=== PATIENT | male | born 1980 | race Hispanic/Latino ===

== ENCOUNTER 2018-01-08 00:02 | Inpatient (IN) | payer SELFPAY ==
[2018-01-08 01:38] LABS: CK (CPK) 62 U/L (30-200); CRP (Inflammatory) Less than 0.50 mg/dL (= or < 0.5); Magnesium 2.2 mg/dL (1.6-2.6)
[2018-01-08] MEDS ORDERED: Ondansetron ODT 4 MG TAB SL PRN (02:21)
[2018-01-08] MEDS ORDERED: Acetaminophen 325 MG TAB PO PRN (02:21)
[2018-01-08] MEDS ORDERED: Sodium Chloride 0.9% 1,000 ML IV SCH ×2 (02:21→02:45)
[2018-01-08] MEDS ORDERED: Ondansetron HCl/PF 4 MG/2 ML Vial IVP PRN (02:21)
[2018-01-08] MEDS ORDERED: Lorazepam 2 MG/ML VIAL SLOW IVP PRN (02:29)
[2018-01-08] MEDS ORDERED: Labetalol HCl 100 MG/20 ML VIAL SLOW IVP PRN (02:42)
[2018-01-08] MEDS ORDERED: hydrALAZINE 20 MG/ML VIAL SLOW IVP PRN (02:42)
[2018-01-08] MEDS ORDERED: Morphine 4 MG/ML VIAL SLOW IVP PRN (02:57)
[2018-01-08] MEDS ORDERED: hydrOXYzine 25 MG TAB PO PRN (03:37)
[2018-01-08 04:19] VITALS: BMI 20.8
--- NOTE | 2018-01-08 04:30 | HP ---
PRIMARY CARE PHYSICIAN: [facility]. PRESENTING COMPLAINT: Weakness. HISTORY OF PRESENT ILLNESS: Mr. Chaparro Jacob is a 37-year-old male with a past medical histor y of protein C deficiency, seizure disorder, vertigo, Crohn disease, CKD, nephrolithiasis, GERD, neur opathy in bilateral lower extremities, and dysphagia, who presents to the emergency room with a 4-day history of right extremity weakness. He said he has residual right hemiparesis and ambulates with t he aid of a cane, but yesterday he became worse and he had some blurry vision in his right eye associ ated with right-sided weakness and felt a pressure around his head. Yesterday, he was unable to get out of bed due to his weakness and continued to have blurry vision in right eye. There is no seizure activity noticed. There is no history of fever or chills. There is no history of loss of conscious ness. He reports he has had some right side of his body paralyzed for about 4 months after bouts of seizures which subsequently resolved. He reports being compliant with his medication and has been ta king Kaushik regularly. He also states he has not seen a neurologist lately due to insurance issues. He used to see Dr. Harris as reported above. No fevers, chills, chest pain, or shortness of breath . At the [facility], he complained of blurry vision. He had a chest x-ray which was nega tive. He also had a CT brain without contrast which was also negative. He was given 1 liter of IV f luid, full-strength aspirin and then sent to the emergency room at [facility]. PAST MEDICAL HISTORY: As stated in the HPI. PAST SURGICAL HISTORY: Lipoma extraction in the arm. FAMILY HISTORY: Reviewed, not contributory. PAST SURGICAL HISTORY: Esophageal dilatation. ALLERGIES: CIPROFLOXACIN, CODEINE, NORCO, REGLAN, PHENERGAN, ORANGES, and CHOCOLATES. HOME MEDICATIONS: Amitriptyline 100 mg at bedtime, folic acid 0.4 mg daily, gabapentin 300 mg t.i.d. , hydroxyzine 25 mg p.o. p.r.n., Keppra 500 mg b.i.d., pantoprazole 400 mg daily, sucralfate 1 gram b .i.d., sulfasalazine 1000 mg t.i.d., zinc 50 mg daily, dicyclomine 10 mg t.i.d. SOCIAL HISTORY: Does not drink alcohol, smoke cigarettes, or use illicit drugs. REVIEW OF SYSTEMS: A 12-point review of system conducted and negative except as stated in the HPI. PHYSICAL EXAMINATION: VITAL SIGNS: Temperature 99.1 degree Fahrenheit, pulse rate 81, respiratory rate 12, oxygen saturati on 98% on room air, blood pressure 131/69. GENERAL: Not in acute distress, lying comfortably in bed. HEENT: PERRLA, EOMI, not pale, anicteric. Moist mucous membranes. Normocephalic, atraumatic. NECK: Supple, full range of movement. No JVD. RESPIRATORY: Vesicular breath sounds bilaterally. No wheezes, rales, or rhonchi. CARDIOVASCULAR: S1, S2 only. No murmurs, rubs, or gallops. Regular rate and rhythm. ABDOMEN: Soft, nontender, nondistended. Bowel sounds normoactive. No hepatosplenomegaly. NEUROLOGIC: Alert and well oriented to time, place, and person. Strength 3/5 in the right upper and lower extremities, 5/5 in left upper and lower extremities. Other cranial nerves intact. SKIN: Warm, dry, well-perfused. No rashes or lesions. MUSCULOSKELETAL: No edema. LABORATORY AND DIAGNOSTIC DATA: CBC was largely unremarkable apart from a borderline low platelet co unt of 136,000. CMP also unremarkable. CT brain without contrast, no acute pathology. ASSESSMENT AND PLAN: 1. Right hemiparesis. Concern for new cerebrovascular accident in this patient with a history of pr otein C deficiency and seizure disorder. He reports no previous strokes in the past, but has had yair e paresis in his right upper and lower extremities after bouts of seizures for which he uses a cane t o ambulate and takes Keppra for. We will admit to Neurology make n.p.o. as he failed his bedside maria c bennett examination. We will also get neurology consult. Monitor on telemetry, obtain PT/OT/speech deloris guage pathology evaluation. An MRI brain will also be ordered. Monitor vital signs closely. 2. Seizure disorder. The patient's home medications will be restarted as soon as [facility] evaluate the p atient. For now we will place him on IV lorazepam p.r.n. for seizures. 3. History of chronic kidney disease, creatinine within normal limits. We will monitor. 4. Dysphagia. Patient has a history of dysphagia and has had esophageal dilatation twice in the pas t. He currently failed a bedside swallow test, so unclear if this is from his chronic dysphagia or d ue to possible new cerebrovascular accident. We will obtain his MRI of brain and gets speech patholo gy evaluation. 5. Protein C deficiency: Resume home medications. 6. History of vertigo.: We will resume home medications once confirmed. CODE STATUS: FULL CODE.
[2018-01-08 04:46] LABS: #Eosinphils 0.1 thou/uL (0.0-0.7); #Lymphocytes 1.1 thou/uL (1.20-3.40); #Monocytes 0.4 thou/uL (0.11-0.59); %Basophils 0.1 % (0.0-1.0); %Eosinophils 2.5 % (0.0-10.0); %Lymphocytes 30.3 % (21.0-51.0); %Neutrophils 57.1 % (42.0-75.0); Hemoglobin 12.2 g/dL (14.0-18.0); Mean Corpuscular HGB CONC 34.5 g/dL (32.0-36.0); Mean Corpuscular Hemoglobin 33.5 pg (27.0-31.0); Mean Corpuscular Volume 97.1 fl (80.0-94.0); Mean Platelet Volume 7.6 fL (7.4-10.4); Platelet Count 129 thou/uL (130-400); Red Blood Cell (RBC) Count 3.64 mill/uL (4.70-6.10); White Blood Cell (WBC) Count 3.5 thou/uL (4.8-10.8)
[2018-01-08 04:49] LABS: Amphetamine Not Detected (NotDetected); Benzodiazepine Screen Not Detected (NotDetected); Cocaine Metabolite Screen Not Detected (NotDetected); Medtox Reader # READER 4; Methamphetamine Not Detected (NotDetected); Opiate Screen Not Detected (NotDetected); Phencyclidine (PCP) Not Detected (NotDetected); THC/Cannabinoid Screen Not Detected (NotDetected)
[2018-01-08 04:50] LABS: Barbiturates Screen Not Detected (NotDetected); Medtox Control Line Valid? VALID (VALID); Methadone Not Detected (NotDetected); Oxycodone Screen Not Detected (NotDetected); Tricyclic Screen Detected (NotDetected)
[2018-01-08 04:57] LABS: Anion Gap 12 mmol/L (10-20); BUN (Urea Nitrogen) 15 mg/dL (8.9-20.6); Calc. Creatinine Clearance 89 mL/min (70-130); Calcium 9.1 mg/dL (7.8-10.44); Carbon Dioxide 24 mmol/L (22-29); Cardiac Risk 3.3 (Less than 4.5); Chloride 108 mmol/L (98-107); Cholesterol 166 mg/dl (< 200 Desired); Estimated GFR-MDRD 81; Glucose 105 mg/dL (70-105); HDL Cholesterol 50 mg/dL (>60 Neg Risk); LDL Cholesterol, Calculated 100 mg/dL; Potassium 3.7 mmol/L (3.5-5.1); Sodium 140 mmol/L (136-145); Triglycerides 81 mg/dL (Less than 150)
[2018-01-08] MEDS: Folic Acid 1 MG TAB PO SCH ×2 (08:38→09:01)
[2018-01-08] MEDS: Sucralfate 1 GM TAB PO SCH ×2 (08:38→18:26)
[2018-01-08] MEDS: levETIRAcetam 500 MG TAB PO SCH ×3 (08:39→09:18)
[2018-01-08] MEDS: Gabapentin 300 MG CAP PO SCH ×4 (08:39→21:58)
[2018-01-08] MEDS: sulfaSALAzine 500 MG TAB PO SCH ×3 (09:01→21:58)
[2018-01-08] MEDS ORDERED: levETIRAcetam 500 mg/5 ml Oral Solution PO SCH (10:30)
[2018-01-08] MEDS: Heparin 5,000 UNITS/ML VIAL SC SCH ×2 (11:54→21:59)
[2018-01-08] MEDS: Morphine 5 MG/ML SYRINGE SLOW IVP PRN ×2 (12:06→22:07)
--- NOTE | 2018-01-08 13:53 | MRI ---
MRI BRAIN WITHOUT CONTRAST: Date: 01/09/08 HISTORY: Altered mental status, seizure disorder. FINDINGS: Correlation is made with the previous day's CT scan. No restricted diffusion is seen. No evidence of infarct, hemorrhage, midline shift, or abnormal extra -axial fluid collections are seen. The ventricular size is normal and the basilar cisterns are patent . No signal abnormalities are noted on the highly sensitive FLAIR images. The visualized paranasal si nuses and mastoid air cells are well aerated. No tonsillar herniation is seen. IMPRESSION: No evidence of acute intracranial process. POS: C
[2018-01-08] MEDS ORDERED: levETIRAcetam 100 mg/ml Oral Solution PO SCH (21:00)
[2018-01-08] MEDS: Amitriptyline HCl 100 MG TAB PO SCH (21:58)
[2018-01-08] MEDS: Atorvastatin Calcium 40 MG TAB PO SCH (21:58)
[2018-01-08] MEDS: levETIRAcetam 500 mg/5 ml Oral Solution PO SCH (21:59)
[2018-01-09 06:10] LABS: #Eosinphils 0.1 thou/uL (0.0-0.7); #Lymphocytes 1.1 thou/uL (1.20-3.40); #Monocytes 0.3 thou/uL (0.11-0.59); #Neutrophils 1.4 thou/uL (1.40-6.50); %Basophils 1.3 % (0.0-1.0); %Eosinophils 4.4 % (0.0-10.0); %Lymphocytes 36.2 % (21.0-51.0); %Monocytes 11.2 % (0.0-10.0); %Neutrophils 46.9 % (42.0-75.0); Hemoglobin 13.3 g/dL (14.0-18.0); Mean Corpuscular HGB CONC 34.2 g/dL (32.0-36.0); Mean Corpuscular Volume 96.4 fl (80.0-94.0); Mean Platelet Volume 7.2 fL (7.4-10.4); Platelet Count 126 thou/uL (130-400); Red Blood Cell (RBC) Count 4.04 mill/uL (4.70-6.10)
[2018-01-09 06:24] LABS: Anion Gap 12 mmol/L (10-20); BUN (Urea Nitrogen) 15 mg/dL (8.9-20.6); Calc. Creatinine Clearance 90 mL/min (70-130); Calcium 9.9 mg/dL (7.8-10.44); Carbon Dioxide 28 mmol/L (22-29); Chloride 102 mmol/L (98-107); Estimated GFR-MDRD 82; Glucose 83 mg/dL (70-105); Potassium 3.9 mmol/L (3.5-5.1); Sodium 138 mmol/L (136-145)
--- NOTE | 2018-01-09 08:54 | CON ---
DATE OF CONSULTATION: 01/08/2018 REFERRING PROVIDER: Dr. Fer Hunter. REASON FOR CONSULTATION: Right-sided weakness. HISTORY OF PRESENT ILLNESS: Mr. Jacob is a 37-year-old male who has been consulted for ev aluation of right-sided weakness. He reports that over the past few weeks, he has been having increa sing weakness in his right side that has gradually gotten worse on yesterday. He noticed sudden onse t of unable to walk and unable to perform any activities with his hand. He was not able to move his right arm . He also noticed weakness on the right side of his face. He also noted blurry visio n in right eye. He was also complaining of numbness and tingling sensation as well as pain on the ri ght side of the face. He also complained of having headache. He states that he has history of seizu re disorder and most of his seizures are nocturnal. He is currently on Keppra 500 mg twice a day and supposed to see Dr. Craig Harris, however, due to financial reasons. He has not been able to see siddhartha orr back in the clinic. He notes that he has not had any seizure type episode, although he is not sure as most of his seizures tend to happen at night where he is by himself, he continues to complain of pain on the right side of the head. PAST MEDICAL HISTORY: Significant for protein C deficiency, seizure disorder, vertigo, Crohn's disea se, chronic kidney disease, nephrolithiasis, GERD, neuropathy, and dysphagia. PAST SURGICAL HISTORY: Significant for lipoma extraction in the arm. FAMILY HISTORY: Noncontributory. SOCIAL HISTORY: He denies smoking, alcohol use, or illicit drug use. He is currently disabled and l syd with his parents. CURRENT MEDICATIONS: Include amitriptyline 100 mg at bedtime, folic acid 0.4 mg daily, Gabapentin 30 0 mg t.i.d., hydroxyzine 25 mg p.r.n., Keppra 1500 mg b.i.d., pantoprazole 40 mg daily, sucralfate 1 gram b.i.d., sulfasalazine 1000 mg t.i.d., zinc 50 mg daily, dicyclomine 10 mg t.i.d. REVIEW OF SYSTEMS: As mentioned, which was negative. PHYSICAL EXAMINATION: VITAL SIGNS: Blood pressure of 110/65, pulse of 81, temperature of 97.8, respirations of 16, O2 sats of 97% room air. GENERAL: Well-developed, well-nourished male with no apparent distress. RESPIRATORY: Clear to auscultation bilaterally. CARDIOVASCULAR: Regular rate and rhythm. NEUROLOGIC: Mental status: The patient is awake, alert, oriented x3. Speech and language: Fluent speech. Cranial nerves: Pupils are 3 mm and reactive. Visual tafoya are intact. External muscles are intact. No nystagmus noted. Face is symmetric. Tongue and uvula midline. Motor exam showed no rmal tone and bulk with a 5/5 strength in the left upper and left lower extremity. He has giveway we akness on the right upper and right lower extremity. His tone is normal in the right upper and right lower extremity. Sensory: Sensation is intact and symmetric. Deep tendon reflexes 2+ reflexes in both upper extremities. Gait and Romberg coordination could not be tested. LABORATORY DATA: Reviewed, which included CBC, CMP, urine drug screen, which is significant for WBC of 3.5, hemoglobin 12.2, hematocrit 35.4, platelet count of 129, otherwise unremarkable. IMAGING STUDIES: MRI brain without contrast was reviewed, which showed no acute intracranial abnorma lity. IMPRESSION: 1. Right-sided weakness. 2. Headache. 3. Facial paresthesia. 4. Vision changes. PLAN: Mr. Jcaob is a pleasant 87-year-old male who presented with the gradual with sudden changes in the right-sided weakness along with facial paresthesia and vision changes. He had an MRI brain done, which showed no acute intracranial abnormality. PHYSICAL EXAMINATION: On exam, he has a giveway weakness in the right upper and right lower extremit y with a normal tone, which suggests this may be a conversion disorder. This could also be secondary to atypical migraine or post-seizure, although the exam is suggests more of weakness. At this time, I will recommend continue physical therapy. Continue supportive care. No further neurologica l workup needed from my standpoint. Thank you for consultation.
[2018-01-09] MEDS: Heparin 5,000 UNITS/ML VIAL SC SCH ×2 (08:59→21:05)
[2018-01-09] MEDS: Gabapentin 300 MG CAP PO SCH ×3 (09:00→21:04)
[2018-01-09] MEDS: sulfaSALAzine 500 MG TAB PO SCH ×3 (09:00→21:04)
[2018-01-09] MEDS: Sucralfate 1 GM TAB PO SCH ×2 (09:00→16:10)
[2018-01-09] MEDS: Folic Acid 1 MG TAB PO SCH (09:00)
[2018-01-09] MEDS: levETIRAcetam 500 mg/5 ml Oral Solution PO SCH ×2 (09:01→21:05)
--- NOTE | 2018-01-09 12:05 | CON ---
DATE OF CONSULTATION: 01/08/2018 REFERRING PHYSICIAN: Dr. Addi Swanson, [facility]. REASON FOR CONSULTATION: Dysphagia. HISTORY OF PRESENT ILLNESS: Mr. Chaparro Jacob is a 37-year-old male, who is known to me from before. The patient was hospitalized over the weekend with weakness of the right upper and lower extremitie s. He also had some blurring of vision. The patient had a CAT scan of the head and MRI of the head, which came back negative for any acute intracranial pathologies. The etiology of the symptom is unc lear at the present time. There is some questionable history of post migraine neurological deficit, . The patient has a very complicated medical history. 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 He was found to have factor C deficiency and was placed on initially Lovenox and subsequently changed to warfarin. The patient had abdominal CAT scan at that time, revealed diffuse colitis. The CAT scan showed diffuse thickening of the colon. Endoscopy showed completely normal mu cosa. He was hospitalized again with abdominal cramping, diarrhea, and hematochezia. A repeat colon oscopy done few months down the road showed nonspecific findings in the rectum and lower sigmoid area . The findings consisted of mucosal edema, erythema, and some tiny ulcers. The patient was hospital ized subsequently in 2014 and also in 2016 at [facility] and also in [place]. He was told to have Crohn's disease in [place] and was placed on sulfasalazine. He takes peck lfasalazine 500 mg 2 tablets p.o. every 8 hours. The patient had a colonoscopy and also capsule endo scopy as per the patient in 2014 and 2016. He also was told to have esophageal stricture and underwe nt dilatation at [facility] in 2016. The patient may have difficulty swallow ing over the last several weeks. He complains of food hang in the esophagus, makes him cough and cho ke. He has no painful swallowing. There is history of chronic acid reflux. Other relevant history includes, 1. Protein C deficiency. 2. Seizure disorder. 3. Vertigo. 4. Crohn's disease. 5. Chronic kidney disease. 6. Nephrolithiasis. 7. Chronic acid reflux. 8. Peripheral neuropathy. No relevant history. ALLERGIES: CIPROFLOXACIN, CODEINE, NORCO, REGLAN, PHENERGAN, ORANGES and CHOCOLATES. SOCIAL HISTORY: The patient denies any smoking or alcohol abuse. No history of drug use. MEDICAL ILLNESSES: As listed. PAST SURGICAL HISTORY: 1. History of lipoma extraction in the right arm. 2. Colonoscopy, multiple 3. Esophageal dilatation. MEDICATIONS: Include: 1. Amitriptyline 100 mg at bedtime. 2. Folic acid 0.4 mg daily. 3. Gabapentin 300 mg 3 times a day. 4. Hydroxyzine 25 mg p.o. p.r.n. 5. Keppra 500 mg p.o. twice a day. 6. Pantoprazole 40 mg p.o. once a day. 7. Sucralfate 1 gram p.o. twice a day. 8. Sulfasalazine 1000 mg 3 times a day. 9. Dicyclomine 10 mg 3 times a day. 10. Zinc supplement. REVIEW OF SYSTEMS: Remarkable for dysphagia over the last several weeks with history of known diarrh ea, hematochezia, abdominal pain, and also with Crohn's disease, weakness and ataxia of most recent o nset. PHYSICAL EXAMINATION: GENERAL: The patient appears comfortable. VITAL SIGNS: Afebrile. His pulse is 80, blood pressure is 130/70. HEENT: Conjunctivae clear. NECK: Supple. No adenitis or thyromegaly noted. CARDIOVASCULAR SYSTEM: First and second heart sounds normal. LUNGS: Clear to auscultate. ABDOMEN: Soft to palpate. No organomegaly. No tenderness. No masses. EXTREMITIES: Reveal no edema. CENTRAL NERVOUS SYSTEM: Weakness on the right upper and lower extremity. IMAGING: CAT scan of the head and also MRI, which came back negative. LABORATORY DATA: CBC unremarkable. Platelet count is 136,000. BMP is normal. CLINICAL IMPRESSION: A 37-year-old male with dysphagia, which has been going on for several months. He has history of an esophageal stricture and underwent dilatation 2 years ago in [facility]. He has a very complicated medical history. I am really not sure what he eats dysphagia. The neuro workup is pending at the present time. I will await the Neurology i nput and we will decide where to go from there. I really want EGD at least solid food dys phagia. I will make further recommendations after the proper Neurology evaluation.
--- NOTE | 2018-01-09 12:45 | PDOC.PN ---
- Subjective Encounter Start Date: 01/09/18 Encounter Start Time: 07:20 Pt seen for followup re: hemiparesis. Reports ongoing right-sided weakness. Denies chest pain, shortness of breath, fevers or chills. - Objective Resuscitation Status: Resuscitation Status FULL:Full Resuscitation MAR Reviewed: Yes Vital Signs & Weight: Vital Signs (12 hours) Temp Pulse Resp BP Pulse Ox 01/09/18 11:00 98.1 F 89 14 104/60 95 01/09/18 08:00 97.8 F 79 14 01/09/18 07:00 97.8 F 79 14 100/59 L 96 01/09/18 03:31 98.0 F 80 16 96/52 L 96 Weight Admit Weight 141 lb 6.4 oz Weight 141 lb 6.4 oz I&O: 01/08/18 01/09/18 01/10/18 06:59 06:59 06:59 Intake Total 300 270 Output Total 600 Balance -300 270 Result Diagrams: 01/09/18 05:50 01/09/18 05:50 Additional Labs: Accuchecks 01/09/18 01/09/18 01/08/18 11:08 05:49 20:50 POC Glucose 110 89 76 01/08/18 16:59 POC Glucose 85 EKG Reviewed by me: Yes (Tele: NSR) Phys Exam - Physical Examination Constitutional: NAD HEENT: PERRLA, moist MMs, sclera anicteric, oral pharynx no lesions Neck: no nodes, no JVD, supple, full ROM Respiratory: no wheezing, no rales, no rhonchi, clear to auscultation bilateral Cardiovascular: RRR, no rub Gastrointestinal: soft, non-tender, no distention, positive bowel sounds Musculoskeletal: pulses present Variable power RUE and RLE, 5/5 LUE and LLE Psychiatric: normal affect Skin: no rash Dx/Plan (1) Hemiparesis Code(s): G81.90 - HEMIPLEGIA, UNSPECIFIED AFFECTING UNSPECIFIED SIDE Status: Acute Comment: conversion disorder vs atypical migraine; appreciate neurology input. (2) Dysphagia Code(s): R13.10 - DYSPHAGIA, UNSPECIFIED Status: Chronic Comment: for scope tomorrow, discussed with GI service (3) Nephrolithiasis Status: Chronic Comment: stable (4) GERD (gastroesophageal reflux disease) Code(s): K21.9 - GASTRO-ESOPHAGEAL REFLUX DISEASE WITHOUT ESOPHAGITIS Status: Chronic Comment: stable, continue PPI (5) Protein C deficiency Code(s): D68.59 - OTHER PRIMARY THROMBOPHILIA Status: Chronic Comment: stable - Plan * . Review of Systems - Review of Systems Constitutional: weakness. negative: fever, chills, sweats, malaise Respiratory: negative: Cough, Dry, Shortness of Breath, Hemoptysis, SOB with Excertion, Pleuritic Pain, Sputum, Wheezing Cardiovascular: negative: chest pain, palpitations, orthopnea, paroxysmal nocturnal dyspnea, edema, light headedness Gastrointestinal: Other (difficulty swallowing). negative: Nausea, Vomiting, Abdominal Pain, Diarrhea, Constipation, Melena, Hematochezia Genitourinary: negative: Dysuria, Frequency, Incontinence, Hematuria, Retention Skin: negative: Rash, Lesions, Manjeet, Bruising - Medications/Allergies Allergies/Adverse Reactions: Allergies Allergy/AdvReac Type Severity Reaction Status Date / Time orange juice [Murdo Juice] Allergy Intermediate Hives Verified 12/17/13 00:01 promethazine HCl Allergy Mild Anxiety Verified 12/17/13 00:01 [From Phenergan] acetaminophen [From [place]] Allergy Verified 01/08/18 03:01 chocolate flavor Allergy Verified 01/08/18 03:01 ciprofloxacin [From Cipro] Allergy Verified 01/08/18 03:01 hydrocodone Allergy Verified 01/06/14 15:57 metoclopramide [From Reglan] Allergy Verified 01/08/18 03:01 codeine AdvReac Intermediate Nausea Verified 12/20/13 18:50 Medications: Current Medications Amitriptyline HCl (Elavil) 100 mg PO HS [facility] Last Admin: 01/08/18 21:58 Dose: 100 mg Atorvastatin Calcium (Lipitor) 40 mg PO HS [facility] Last Admin: 01/08/18 21:58 Dose: 40 mg Folic Acid (Folvite) 0.5 mg PO DAILY [facility] Last Admin: 01/09/18 09:00 Dose: 0.5 mg Gabapentin (Neurontin) 300 mg PO TID [facility] Last Admin: 01/09/18 09:00 Dose: 300 mg Heparin Sodium (Porcine) (Heparin) 5,000 units SC Q12HR [facility] Last Admin: 01/09/18 08:59 Dose: 5,000 units Hydralazine HCl (Apresoline) 10 mg SLOW IVP Q4H PRN PRN Reason: BP > 220/110 Hydroxyzine HCl (Atarax) 25 mg PO PRN PRN PRN Reason: Dizziness Labetalol HCl (Normodyne) 20 mg SLOW IVP Q1H PRN PRN Reason: BP > 220/110 Levetiracetam (Keppra Oral Solution) 500 mg PO BID [facility] Last Admin: 01/09/18 09:01 Dose: 500 mg Lorazepam (Ativan) 1 mg SLOW IVP Q4H PRN PRN Reason: Anxiety/Agitation Morphine Sulfate (Morphine) 2 mg SLOW IVP Q2H PRN PRN Reason: Pain Last Admin: 01/08/18 22:07 Dose: 2 mg Pantoprazole Sodium (Protonix) 40 mg PO DAILY [facility] Last Admin: 01/09/18 09:01 Dose: 40 mg Sodium Chloride (Flush - Normal Saline) 10 ml IVF Q12HR [facility] Last Admin: 01/09/18 09:01 Dose: 10 ml Sodium Chloride (Flush - Normal Saline) 10 ml IVF PRN PRN PRN Reason: Saline Flush Sucralfate (Carafate) 1 gm PO BID-AC [facility] Last Admin: 01/09/18 09:00 Dose: 1 gm Sulfasalazine (Azulfidine) 1,000 mg PO TID [facility] Last Admin: 01/09/18 09:00 Dose: 1,000 mg
[2018-01-09] MEDS ORDERED: Dicyclomine 10 MG CAP PO PRN (12:54)
[2018-01-09] MEDS ORDERED: Morphine IR 10 MG/5 ML UDCUP PO SCH (13:15)
[2018-01-09] MEDS ORDERED: Morphine 4 MG/ML VIAL IV PRN (13:32)
[2018-01-09] MEDS ORDERED: Morphine 10 MG/0.5 ML ORAL SYRINGE SL SCH (13:45)
[2018-01-09] MEDS: Amitriptyline HCl 100 MG TAB PO SCH (21:04)
[2018-01-09] MEDS: Atorvastatin Calcium 40 MG TAB PO SCH (21:04)
[2018-01-10 05:40] LABS: #Eosinphils 0.1 thou/uL (0.0-0.7); #Lymphocytes 1.2 thou/uL (1.20-3.40); #Monocytes 0.4 thou/uL (0.11-0.59); #Neutrophils 1.8 thou/uL (1.40-6.50); %Basophils 0.8 % (0.0-1.0); %Eosinophils 3.1 % (0.0-10.0); %Lymphocytes 34.3 % (21.0-51.0); %Monocytes 10.5 % (0.0-10.0); %Neutrophils 51.3 % (42.0-75.0); Hemoglobin 14.4 g/dL (14.0-18.0); Mean Corpuscular HGB CONC 34.6 g/dL (32.0-36.0); Mean Corpuscular Hemoglobin 33.2 pg (27.0-31.0); Mean Platelet Volume 6.9 fL (7.4-10.4); Platelet Count 142 thou/uL (130-400); Red Blood Cell (RBC) Count 4.32 mill/uL (4.70-6.10); White Blood Cell (WBC) Count 3.4 thou/uL (4.8-10.8)
[2018-01-10 06:07] LABS: Anion Gap 16 mmol/L (10-20); BUN (Urea Nitrogen) 18 mg/dL (8.9-20.6); Calc. Creatinine Clearance 74 mL/min (70-130); Carbon Dioxide 25 mmol/L (22-29); Chloride 101 mmol/L (98-107); Estimated GFR-MDRD 65; Glucose 86 mg/dL (70-105); Potassium 3.8 mmol/L (3.5-5.1); Sodium 138 mmol/L (136-145)
[2018-01-10] MEDS: Sucralfate 1 GM TAB PO SCH ×2 (08:18→15:40)
--- NOTE | 2018-01-10 08:35 | PRG ---
DATE OF SERVICE: 01/09/2018 HOSPITAL VISIT NOTE SUBJECTIVE: This is a 37-year-old male hospitalized with weakness on the right upper and lower extre mity. The patient has significant dysphagia. The dysphagia occurs mostly in solid food. The patien t has past history of esophageal dilatation. PHYSICAL EXAMINATION: GENERAL: Appears comfortable. VITAL SIGNS: Stable. CARDIOVASCULAR SYSTEM AND LUNGS: Within normal limits. ABDOMEN: Soft to palpate. No organomegaly. No tenderness. No masses. CLINICAL IMPRESSION: Dysphagia, etiology is unclear. PLAN: EGD tomorrow.
[2018-01-10] MEDS ORDERED: Non-Formulary Item 1 EACH (Zinc [Zinc] 50 MG) PO SCH (09:00)
[2018-01-10] MEDS ORDERED: Promethazine HCl 25 MG/ML VIAL SLOW IVP PRN (09:46)
[2018-01-10] MEDS ORDERED: Promethazine HCl 25 MG/ML VIAL IM PRN (09:46)
[2018-01-10] MEDS ORDERED: Ondansetron HCl/PF 4 MG/2 ML Vial IVP PRN (09:46)
[2018-01-10] MEDS: Gabapentin 300 MG CAP PO SCH ×3 (11:42→21:16)
[2018-01-10] MEDS: Heparin 5,000 UNITS/ML VIAL SC SCH ×2 (11:42→21:16)
[2018-01-10] MEDS: sulfaSALAzine 500 MG TAB PO SCH ×3 (11:43→21:15)
[2018-01-10] MEDS: Zinc Sulfate 220 MG CAP PO SCH (11:53)
[2018-01-10] MEDS: levETIRAcetam 500 mg/5 ml Oral Solution PO SCH ×2 (11:53→21:16)
[2018-01-10] MEDS: Folic Acid 1 MG TAB PO SCH (11:53)
[2018-01-10] MEDS: Sodium Chloride 0.9% 1,000 ML IV SCH (13:05)
[2018-01-10] MEDS ORDERED: PROPOFOL 200 MG/20 ML VIAL ONE (15:59)
--- NOTE | 2018-01-10 16:40 | PDOC.PN ---
- Subjective Encounter Start Date: 01/10/18 Encounter Start Time: 16:39 Pt seen for followup re: R hemiparesis. Reports pain over right side of head, sharp, starting in forntal region and radiating to occiput. Reports blurry vision but bedside visual acuity testing normal. - Objective Resuscitation Status: Resuscitation Status FULL:Full Resuscitation MAR Reviewed: Yes Vital Signs & Weight: Vital Signs (12 hours) Temp Pulse Resp BP Pulse Ox 01/10/18 15:33 98.4 F 84 16 105/63 94 L 01/10/18 12:02 98.0 F 80 16 95/63 96 01/10/18 10:47 77 18 101/62 100 01/10/18 08:00 98.0 F 80 16 91/63 95 Weight Admit Weight 141 lb 6.4 oz Weight 141 lb 6.4 oz I&O: 01/09/18 01/10/18 01/11/18 06:59 06:59 06:59 Intake Total 300 1610 Output Total 600 750 Balance -300 860 Result Diagrams: 01/10/18 05:27 01/10/18 05:27 Additional Labs: Accuchecks 01/10/18 01/10/18 01/09/18 11:07 05:15 20:25 POC Glucose 88 89 94 01/09/18 16:47 POC Glucose 91 EKG Reviewed by me: Yes (Tele: NSR) Phys Exam - Physical Examination Constitutional: NAD HEENT: PERRLA, moist MMs, sclera anicteric, oral pharynx no lesions Neck: no nodes, no JVD, supple, full ROM Respiratory: no wheezing, no rales, no rhonchi, clear to auscultation bilateral Cardiovascular: RRR, no rub Gastrointestinal: soft, non-tender, no distention, positive bowel sounds Musculoskeletal: pulses present Power 2/5 RLE and RUE, 5/5 LLE and LUE Psychiatric: normal affect Skin: no rash Dx/Plan (1) Hemiparesis Code(s): G81.90 - HEMIPLEGIA, UNSPECIFIED AFFECTING UNSPECIFIED SIDE Status: Acute Comment: conversion disorder vs atypical migraine; discussed with neurology service, will administer Depacon for possible migraine (2) Dysphagia Code(s): R13.10 - DYSPHAGIA, UNSPECIFIED Status: Chronic Comment: Had scope today, await report. Pt reports dysphagia is improving. (3) Nephrolithiasis Status: Chronic Comment: stable (4) GERD (gastroesophageal reflux disease) Code(s): K21.9 - GASTRO-ESOPHAGEAL REFLUX DISEASE WITHOUT ESOPHAGITIS Status: Chronic Comment: continue PPI (5) Protein C deficiency Code(s): D68.59 - OTHER PRIMARY THROMBOPHILIA Status: Chronic Comment: stable - Plan * . Review of Systems - Review of Systems Constitutional: weakness. negative: fever, chills, sweats, malaise Respiratory: negative: Cough, Dry, Shortness of Breath, Hemoptysis, SOB with Excertion, Pleuritic Pain, Sputum, Wheezing Cardiovascular: negative: chest pain, palpitations, orthopnea, paroxysmal nocturnal dyspnea, edema, light headedness Musculoskeletal: Other (headache). negative: Neck Pain, Shoulder Pain, Arm Pain , Back Pain, Hand Pain, Leg Pain, Foot Pain Skin: negative: Rash, Lesions, Manjeet, Bruising Neurological: Weakness, Other (headache). negative: Numbness, Incoordination, Change in Speech, Confusion, Seizures - Medications/Allergies Allergies/Adverse Reactions: Allergies Allergy/AdvReac Type Severity Reaction Status Date / Time orange juice [[place] Juice] Allergy Intermediate Hives Verified 12/17/13 00:01 promethazine HCl Allergy Mild Anxiety Verified 12/17/13 00:01 [From Phenergan] acetaminophen [From [place]] Allergy Verified 01/08/18 03:01 chocolate flavor Allergy Verified 01/08/18 03:01 ciprofloxacin [From Cipro] Allergy Verified 01/08/18 03:01 hydrocodone Allergy Verified 01/06/14 15:57 metoclopramide [From Reglan] Allergy Verified 01/08/18 03:01 codeine AdvReac Intermediate Nausea Verified 12/20/13 18:50 Medications: Current Medications Amitriptyline HCl (Elavil) 100 mg PO HS [facility] Last Admin: 01/09/18 21:04 Dose: 100 mg Atorvastatin Calcium (Lipitor) 40 mg PO HS [facility] Last Admin: 01/09/18 21:04 Dose: 40 mg Dicyclomine HCl (Bentyl) 10 mg PO TIDPRN PRN PRN Reason: GI Cramping Folic Acid (Folvite) 0.5 mg PO DAILY [facility] Last Admin: 01/10/18 11:53 Dose: 0.5 mg Gabapentin (Neurontin) 300 mg PO TID [facility] Last Admin: 01/10/18 15:36 Dose: 300 mg Heparin Sodium (Porcine) (Heparin) 5,000 units SC Q12HR [facility] Last Admin: 01/10/18 11:42 Dose: Not Given Hydralazine HCl (Apresoline) 10 mg SLOW IVP Q4H PRN PRN Reason: BP > 220/110 Hydroxyzine HCl (Atarax) 25 mg PO PRN PRN PRN Reason: Dizziness Sodium Chloride (Normal Saline 0.9%) 1,000 mls @ 75 mls/hr IV .[id number] [facility] Last Admin: 01/10/18 13:05 Dose: 1,000 mls Valproic Acid 500 mg/ Sodium (Chloride) 105 mls @ 100 mls/hr IVPB NOW [facility] Stop: 01/10/18 18:45 Labetalol HCl (Normodyne) 20 mg SLOW IVP Q1H PRN PRN Reason: BP > 220/110 Levetiracetam (Keppra Oral Solution) 500 mg PO BID [facility] Last Admin: 01/10/18 11:53 Dose: 500 mg Lorazepam (Ativan) 1 mg SLOW IVP Q4H PRN PRN Reason: Anxiety/Agitation Morphine Sulfate (Morphine) 2 mg IV Q2H PRN PRN Reason: Pain Pantoprazole Sodium (Protonix) 40 mg PO DAILY [facility] Last Admin: 01/10/18 11:53 Dose: 40 mg Sodium Chloride (Flush - Normal Saline) 10 ml IVF Q12HR [facility] Last Admin: 01/10/18 11:53 Dose: 10 ml Sodium Chloride (Flush - Normal Saline) 10 ml IVF PRN PRN PRN Reason: Saline Flush Sucralfate (Carafate) 1 gm PO BID-AC [facility] Last Admin: 01/10/18 15:40 Dose: Not Given Sulfasalazine (Azulfidine) 1,000 mg PO TID [facility] Last Admin: 01/10/18 15:36 Dose: 1,000 mg Zinc Sulfate (Zinc Sulfate) 220 mg PO DAILY [facility] Last Admin: 01/10/18 11:53 Dose: 220 mg
[2018-01-10] MEDS ORDERED: Valproate Sodium 500 MG in Sodium Chloride 0.9% 100 ML IVPB SCH (16:45)
[2018-01-10] MEDS: Atorvastatin Calcium 40 MG TAB PO SCH (21:15)
[2018-01-10] MEDS: Amitriptyline HCl 100 MG TAB PO SCH (21:17)
--- NOTE | 2018-01-11 00:59 | OP ---
DATE OF SURGERY: 01/10/2018 OPERATIVE PROCEDURE: 1. Esophagogastroduodenoscopy. 2. Esophageal dilation with 52-Eth[place] Anthony dilator. PREOPERATIVE DIAGNOSIS: Dysphagia. POSTOPERATIVE DIAGNOSIS: Normal exam. Because of dysphagia, esophageal dilation done with 52-Eth[place] Anthony dilator. PROCEDURE NOTE: The patient was placed on his left lateral position and was given sedation by Anesth esia Department. A Pentax video gastroscope under direct vision was passed down the oropharynx, past the GE junction into the stomach and subsequently into the descending duodenum. Although, the patie nt complained of dysphagia. On endoscopy, there was no stricture seen. The vocal cords appeared hea lthy. The esophageal mucosa appeared normal throughout the esophagus. There was no intrinsic lesion seen. The GE junction, the fundus and cardia, gastric body, gastric antrum, and duodenum, no pathol ogy seen. The stomach was decompressed and the scope removed. Because of history of dysphagia, it w as decided to pass a 52-Eth[place] Anthony dilator. The dilator was advanced into the stomach without an y resistance. RECOMMENDATIONS: 1. Diet as tolerated. 2. No further recommendation made for the dysphagia.
[2018-01-11] MEDS: Sodium Chloride 0.9% 1,000 ML IV SCH ×2 (07:26→15:37)
[2018-01-11 07:55] LABS: #Eosinphils 0.1 thou/uL (0.0-0.7); #Lymphocytes 1.1 thou/uL (1.20-3.40); #Monocytes 0.3 thou/uL (0.11-0.59); #Neutrophils 1.1 thou/uL (1.40-6.50); %Basophils 1.6 % (0.0-1.0); %Lymphocytes 41.2 % (21.0-51.0); %Monocytes 10.3 % (0.0-10.0); Mean Corpuscular HGB CONC 33.8 g/dL (32.0-36.0); Mean Corpuscular Hemoglobin 33.4 pg (27.0-31.0); Mean Corpuscular Volume 98.9 fl (80.0-94.0); Mean Platelet Volume 7.7 fL (7.4-10.4); Platelet Count 134 thou/uL (130-400); RBC Distribution Width 10.9 % (11.5-14.5); Red Blood Cell (RBC) Count 3.88 mill/uL (4.70-6.10); White Blood Cell (WBC) Count 2.6 thou/uL (4.8-10.8)
[2018-01-11 08:30] LABS: Anion Gap 11 mmol/L (10-20); BUN (Urea Nitrogen) 17 mg/dL (8.9-20.6); Calc. Creatinine Clearance 83 mL/min (70-130); Calcium 9.2 mg/dL (7.8-10.44); Carbon Dioxide 25 mmol/L (22-29); Chloride 105 mmol/L (98-107); Estimated GFR-MDRD 75; Glucose 77 mg/dL (70-105); Potassium 4.3 mmol/L (3.5-5.1); Sodium 137 mmol/L (136-145)
[2018-01-11] MEDS: Folic Acid 1 MG TAB PO SCH (08:46)
[2018-01-11] MEDS: Gabapentin 300 MG CAP PO SCH ×3 (08:46→21:47)
[2018-01-11] MEDS: sulfaSALAzine 500 MG TAB PO SCH ×3 (08:46→21:48)
[2018-01-11] MEDS: levETIRAcetam 500 mg/5 ml Oral Solution PO SCH ×2 (08:46→21:46)
[2018-01-11] MEDS: Zinc Sulfate 220 MG CAP PO SCH (08:46)
[2018-01-11] MEDS: Heparin 5,000 UNITS/ML VIAL SC SCH (08:47)
[2018-01-11] MEDS: Sucralfate 1 GM TAB PO SCH ×2 (08:48→18:12)
[2018-01-11] MEDS ORDERED: Ondansetron HCl/PF 4 MG/2 ML Vial SLOW IVP PRN (11:04)
[2018-01-11] MEDS ORDERED: Ondansetron ODT 8 MG TAB PO SCH (11:30)
--- NOTE | 2018-01-11 12:01 | PDOC.PN ---
- Subjective Encounter Start Date: 01/11/18 Encounter Start Time: 08:40 Pt seen for followup re: R hemiparesis. Denies headache, fevers or chills. Reports ongoing right-sided weakness. - Objective Resuscitation Status: Resuscitation Status FULL:Full Resuscitation MAR Reviewed: Yes Vital Signs & Weight: Vital Signs (12 hours) Temp Pulse Resp BP Pulse Ox 01/11/18 11:00 97.9 F 85 16 83/50 L 95 01/11/18 08:00 97.9 F 94 16 01/11/18 07:33 97.9 F 94 16 95/62 96 Weight Admit Weight 141 lb 6.4 oz Weight 141 lb 6.4 oz I&O: 01/10/18 01/11/18 01/12/18 06:59 06:59 06:59 Intake Total 1610 1210 360 Output Total 750 3 Balance 860 1207 360 Result Diagrams: 01/11/18 05:38 01/11/18 06:30 Additional Labs: Accuchecks 01/11/18 01/11/18 01/10/18 11:04 05:39 20:42 POC Glucose 92 84 119 H 01/10/18 16:39 POC Glucose 91 EKG Reviewed by me: Yes (Tele: NSR) Phys Exam - Physical Examination Constitutional: NAD HEENT: PERRLA, moist MMs, sclera anicteric, oral pharynx no lesions Neck: no nodes, no JVD, supple, full ROM Respiratory: no wheezing, no rales, no rhonchi, clear to auscultation bilateral Cardiovascular: RRR, no rub Gastrointestinal: soft, non-tender, positive bowel sounds Musculoskeletal: pulses present Power 3+/5 RUE and RLE, 5/5 LUE and LLE Psychiatric: normal affect Dx/Plan (1) Hemiparesis Code(s): G81.90 - HEMIPLEGIA, UNSPECIFIED AFFECTING UNSPECIFIED SIDE Status: Acute Comment: conversion disorder vs atypical migraine; Pt received Depacon for possible migraine, reports no benefit. Pt requesting second neurology opinion, will consult Dr. Harris. (2) Dysphagia Code(s): R13.10 - DYSPHAGIA, UNSPECIFIED Status: Chronic Comment: s/p EGD yesterday, no etiology found. Pt reports dysphagia is improving. (3) Nephrolithiasis Status: Chronic Comment: stable (4) GERD (gastroesophageal reflux disease) Code(s): K21.9 - GASTRO-ESOPHAGEAL REFLUX DISEASE WITHOUT ESOPHAGITIS Status: Chronic Comment: on PPI (5) Protein C deficiency Code(s): D68.59 - OTHER PRIMARY THROMBOPHILIA Status: Chronic Comment: stable - Plan * . Review of Systems - Review of Systems Constitutional: weakness. negative: fever, chills, sweats, malaise Respiratory: negative: Cough, Dry, Shortness of Breath, Hemoptysis, SOB with Excertion, Pleuritic Pain, Sputum, Wheezing Cardiovascular: negative: chest pain, palpitations, orthopnea, paroxysmal nocturnal dyspnea, edema, light headedness Gastrointestinal: Nausea, Other (dysphagia). negative: Vomiting, Abdominal Pain , Diarrhea, Constipation, Melena, Hematochezia Genitourinary: negative: Dysuria, Frequency, Incontinence, Hematuria, Retention Skin: negative: Rash, Lesions, Manjeet, Bruising Neurological: Weakness - Medications/Allergies Allergies/Adverse Reactions: Allergies Allergy/AdvReac Type Severity Reaction Status Date / Time orange juice [[place] Juice] Allergy Intermediate Hives Verified 12/17/13 00:01 promethazine HCl Allergy Mild Anxiety Verified 12/17/13 00:01 [From Phenergan] acetaminophen [From [place]] Allergy Verified 01/08/18 03:01 chocolate flavor Allergy Verified 01/08/18 03:01 ciprofloxacin [From Cipro] Allergy Verified 01/08/18 03:01 hydrocodone Allergy Verified 01/06/14 15:57 metoclopramide [From Reglan] Allergy Verified 01/08/18 03:01 codeine AdvReac Intermediate Nausea Verified 12/20/13 18:50 Medications: Current Medications Amitriptyline HCl (Elavil) 100 mg PO HS [facility] Last Admin: 01/10/18 21:17 Dose: 100 mg Atorvastatin Calcium (Lipitor) 40 mg PO HS [facility] Last Admin: 01/10/18 21:15 Dose: 40 mg Dicyclomine HCl (Bentyl) 10 mg PO TIDPRN PRN PRN Reason: GI Cramping Folic Acid (Folvite) 0.5 mg PO DAILY [facility] Last Admin: 01/11/18 08:46 Dose: 0.5 mg Gabapentin (Neurontin) 300 mg PO TID [facility] Last Admin: 01/11/18 08:46 Dose: 300 mg Heparin Sodium (Porcine) (Heparin) 5,000 units SC Q12HR [facility] Last Admin: 01/11/18 08:47 Dose: 5,000 units Hydralazine HCl (Apresoline) 10 mg SLOW IVP Q4H PRN PRN Reason: BP > 220/110 Hydroxyzine HCl (Atarax) 25 mg PO PRN PRN PRN Reason: Dizziness Sodium Chloride (Normal Saline 0.9%) 1,000 mls @ 75 mls/hr IV .[id number] [facility] Last Admin: 01/11/18 07:26 Dose: 1,000 mls Labetalol HCl (Normodyne) 20 mg SLOW IVP Q1H PRN PRN Reason: BP > 220/110 Levetiracetam (Keppra Oral Solution) 500 mg PO BID [facility] Last Admin: 01/11/18 08:46 Dose: 500 mg Lorazepam (Ativan) 1 mg SLOW IVP Q4H PRN PRN Reason: Anxiety/Agitation Morphine Sulfate (Morphine) 2 mg IV Q2H PRN PRN Reason: Pain Ondansetron HCl (Zofran) 4 mg SLOW IVP Q4H PRN PRN Reason: Nausea/Vomiting Ondansetron HCl (Zofran Odt) 8 mg PO 1130 [facility] Stop: 01/11/18 15:00 Last Admin: 01/11/18 11:41 Dose: 8 mg Pantoprazole Sodium (Protonix) 40 mg PO DAILY [facility] Last Admin: 01/11/18 08:46 Dose: 40 mg Sodium Chloride (Flush - Normal Saline) 10 ml IVF Q12HR [facility] Last Admin: 01/11/18 08:48 Dose: Not Given Sodium Chloride (Flush - Normal Saline) 10 ml IVF PRN PRN PRN Reason: Saline Flush Sucralfate (Carafate) 1 gm PO BID-AC [facility] Last Admin: 01/11/18 08:48 Dose: Not Given Sulfasalazine (Azulfidine) 1,000 mg PO TID [facility] Last Admin: 01/11/18 08:46 Dose: 1,000 mg Zinc Sulfate (Zinc Sulfate) 220 mg PO DAILY [facility] Last Admin: 01/11/18 08:46 Dose: 220 mg
[2018-01-11] MEDS ORDERED: ISOVUE-370 76%-LOCM 1 ML ONE (13:55)
--- NOTE | 2018-01-11 15:44 | RAD ---
PORTABLE CHEST: History: Cough. Comparison: 01-07-18 FINDINGS: Heart size and mediastinum are within normal limits. The lungs are clear of infiltrates. No significa nt bony findings. IMPRESSION: No active intrathoracic disease. POS: TPC
[2018-01-11 16:00] LABS: Troponin I Less than 0.010 ng/mL (< 0.028)
[2018-01-11 18:26] LABS: #Eosinphils 0.1 thou/uL (0.0-0.7); #Lymphocytes 0.9 thou/uL (1.20-3.40); #Monocytes 0.2 thou/uL (0.11-0.59); #Neutrophils 1.1 thou/uL (1.40-6.50); %Eosinophils 4.3 % (0.0-10.0); %Lymphocytes 38.3 % (21.0-51.0); %Monocytes 9.1 % (0.0-10.0); %Neutrophils 47.4 % (42.0-75.0); Hemoglobin 12.1 g/dL (14.0-18.0); Mean Corpuscular HGB CONC 33.3 g/dL (32.0-36.0); Mean Corpuscular Hemoglobin 32.9 pg (27.0-31.0); Mean Corpuscular Volume 98.7 fl (80.0-94.0); Mean Platelet Volume 7.2 fL (7.4-10.4); Platelet Count 128 thou/uL (130-400); RBC Distribution Width 10.9 % (11.5-14.5); Red Blood Cell (RBC) Count 3.69 mill/uL (4.70-6.10); White Blood Cell (WBC) Count 2.4 thou/uL (4.8-10.8)
[2018-01-11 18:36] LABS: Bilirubin Negative (Negative); Blood, Urine Negative (Negative); Clarity CLEAR (Clear); Glucose, Urine (Dipstick) Negative (Negative); Leukocyte Negative (Negative); Nitrite Negative (Negative); Protein, Urine (Dipstick) Negative (Neg-Trace); Specific Gravity, Urine 1.012 (1.002-1.036)
[2018-01-11 18:45] LABS: ALT (SGPT) 17 U/L (8-55); AST (SGOT) 18 U/L (5-34); Albumin 3.9 g/dL (3.5-5.0); Alkaline Phosphatase 43 U/L (40-150); Anion Gap 11 mmol/L (10-20); BUN (Urea Nitrogen) 14 mg/dL (8.9-20.6); Bilirubin, Total 0.4 mg/dL (0.2-1.2); Calc. Creatinine Clearance 79 mL/min (70-130); Calcium 8.8 mg/dL (7.8-10.44); Carbon Dioxide 24 mmol/L (22-29); Chloride 107 mmol/L (98-107); Estimated GFR-MDRD 71; Globulin 2.1 g/dL (2.4-3.5); Glucose 88 mg/dL (70-105); Sodium 138 mmol/L (136-145)
[2018-01-11] MEDS ORDERED: Sodium Chloride 0.9% 1,000 ML IV SCH (18:45)
[2018-01-11] MEDS ORDERED: Nitroglycerin 0.4 MG TAB (25 Tab Bottle) ONE (18:51)
[2018-01-11] MEDS ORDERED: Nitroglycerin 0.4 MG TAB (25 Tab Bottle) SL PRN (18:52)
[2018-01-11 18:58] LABS: Troponin I Less than 0.010 ng/mL (< 0.028)
[2018-01-11 19:01] LABS: Lactic Acid 0.9 mmol/L (0.5-2.2)
--- NOTE | 2018-01-11 21:01 | CT ---
CT ANGIOGRAM OF THE CHEST WITH CONTRAST: DATE: 01/11/18 TIME: 7:28 p.m. HISTORY: 37-year-old male with chest pain, hypotension, and abnormal EKG. Rule out thoracic aortic dissection. TECHNIQUE: IV contrast injection. Arterial bolus chasing technique scan performed through the entire chest. Obli que coronal and sagittal 3D MIP reconstructions. FINDINGS: There is no thoracic aortic dissection, aneurysm, or rupture. There is no pulmonary thromboembolism. No cardiomegaly or pericardial effusion. No pleural effusion or pneumothorax. No air space density, b ronchiectasis, or ground glass lesion. No mediastinal or hilar lymphadenopathy. No destructive osseou s lesion. No thoracic spine compression fracture. Mild lateral curvature of upper thoracic spine. Tra mariely and major bronchi are patent and clear. IMPRESSION: No major pathology identified. POS: JIN
--- NOTE | 2018-01-11 21:32 | PDOC.EVN ---
Event Note - Event Note Event Note: Pt seen today evening re: abnormal EKG. VSS. S1, S2, RRR. Lungs CTA. Pt reported retrosternal chest discomfort. Discussed case with Dr Freedman. Pt seen by Dr Freedman as well. CTA chest - no dissection. Dr Freedman reviewed 0old EKGs, pt appears to have had EKG changes in the past as well, likely repolarization changes. Dr. Castellanos will follow up on troponin.
[2018-01-11 21:33] LABS: Troponin I Less than 0.010 ng/mL (< 0.028)
[2018-01-11] MEDS: Atorvastatin Calcium 40 MG TAB PO SCH (21:47)
[2018-01-11] MEDS: Amitriptyline HCl 100 MG TAB PO SCH (21:47)
[2018-01-11] MEDS ORDERED: Nitroglycerin 2% Ointment 1 INCH/1 GM Packet TOP SCH (22:00)
--- NOTE | 2018-01-11 23:51 | CON ---
DATE OF CONSULTATION: 01/11/2018 REASON FOR CONSULTATION: Chest pain, abnormal EKG. HISTORY OF PRESENT ILLNESS: Mr. Jacob is a very pleasant 37-year-old man. He was admitted to the hospital for evaluation of right-sided weakness. He was seen and evaluated by Dr. Miranda who suspected this may be a conversion disorder. Brain MRI showed no acute process. The patient has also had dysphagia and symptoms of reflux. He underwent upper endoscopy and a 52-Ayaan mth Anthony dilator was passed, but apparently there was actually no obstruction in the esophagus. T he patient was just feeling weak and fatigued, did not feel well today and the blood pressures was lo w. Therefore, Dr. Swanson did a troponin level, which was normal later the patient began complaining o f chest pain. A troponin level at 15:25 was normal. EKG was done in the computer, read it as a poss ible acute myocardial infarction. There is a slight ST elevation and upsloping in lead II and aVF as well as lead I. There is also some J point elevation in those leads. Looking back at his previous EKGs, this pattern was present on previous EKGs, although it looks sligh tly more pronounced now. PAST MEDICAL HISTORY: Negative for any hypertension. Does have a history of esophageal reflux. MEDICATIONS AT HOME: He was takin. Pantoprazole. 2. Amitriptyline. 3. Gabapentin. 4. Zinc. 5. Sucralfate. 6. Folic acid. ALLERGIES: ORANGE JUICE, ACETAMINOPHEN, CIPRO, HYDROCODONE, METOCLOPRAMIDE, and CODEINE. REVIEW OF SYSTEMS: Constitutional: Positive for weakness and fatigue. Vision: No changes. Hearin g: No changes. Pulmonary: No cough or wheezing. Gastrointestinal: No nausea, vomiting, or diarrh ea. Skin: No rashes. Neurologic: No unilateral weakness or numbness. Psychiatric: No unusual de pression or anxiety. Hematologic: No unusual bruising. Genitourinary: No burning with urination. PHYSICAL EXAMINATION: GENERAL: This is a thin, pleasant gentleman, in no distress. VITAL SIGNS: Blood pressure was 88/51, but after fluid bolus it is 104 systolic, pulse 90. HEENT: Eyes: Sclerae nonicteric. Mouth: Mucous membranes moist. NECK: Supple, no lymphadenopathy. LUNGS: Clear, no wheezing, rales or rhonchi. CARDIAC: Normal S1, normal S2. I do not hear murmur, rub or gallop. ABDOMEN: Soft, nontender. He is very thin. EXTREMITIES: No clubbing, no cyanosis or edema. Peripheral pulses are all intact dorsalis pedis and posterior tibial. IMAGING: Chest x-ray was unremarkable. PERTINENT LABORATORY DATA: His LDL cholesterol was 100, his HDL cholesterol is 50. He does not have history of smoking or diabetes. Cardiac enzymes are negative x2 as mentioned. ASSESSMENT AND PLAN: 1. Chest pain of uncertain etiology. Cardiac enzymes so far negative. 2. Mild EKG changes noted on the electrocardiogram. The computerized reading, read this as an acute FL, but as mentioned looking back at previous EKGs, he did have some mild EKG changes similar to thi s on previous EKGs. 3. As mentioned, the risk factor profile for coronary artery disease is extremely low with low johann sterol, no smoking, no diabetes, no hypertension. 4. One dose of nitroglycerin was given. He said he just felt his heart pounding harder with that, b ut did not affect the chest pain. 5. We will do CT of the ascending aorta and make sure the patient does not have a dissection and con tinued to repeat troponin levels. The patient's chest discomfort may be related to his esophageal re flux. If the patient's pain continues, catheterization could be considered, but as mentioned the ris k factor profile is extremely low and the cardiac enzymes are negative at this point.
[2018-01-12] MEDS: Sodium Chloride 0.9% 1,000 ML IV SCH ×3 (01:47→20:05)
[2018-01-12 06:44] LABS: #Eosinphils 0.1 thou/uL (0.0-0.7); #Monocytes 0.3 thou/uL (0.11-0.59); #Neutrophils 1.1 thou/uL (1.40-6.50); %Basophils 1.3 % (0.0-1.0); %Eosinophils 4.5 % (0.0-10.0); %Lymphocytes 41.2 % (21.0-51.0); %Monocytes 9.9 % (0.0-10.0); %Neutrophils 43.1 % (42.0-75.0); Hemoglobin 12.2 g/dL (14.0-18.0); Mean Corpuscular HGB CONC 34.4 g/dL (32.0-36.0); Mean Corpuscular Hemoglobin 33.2 pg (27.0-31.0); Mean Corpuscular Volume 96.5 fl (80.0-94.0); Mean Platelet Volume 7.3 fL (7.4-10.4); Platelet Count 118 thou/uL (130-400); RBC Distribution Width 10.8 % (11.5-14.5); Red Blood Cell (RBC) Count 3.68 mill/uL (4.70-6.10); White Blood Cell (WBC) Count 2.5 thou/uL (4.8-10.8)
[2018-01-12 06:49] LABS: Anion Gap 11 mmol/L (10-20); BUN (Urea Nitrogen) 12 mg/dL (8.9-20.6); Calc. Creatinine Clearance 81 mL/min (70-130); Carbon Dioxide 25 mmol/L (22-29); Chloride 106 mmol/L (98-107); Estimated GFR-MDRD 73; Glucose 81 mg/dL (70-105); Potassium 3.8 mmol/L (3.5-5.1); Sodium 138 mmol/L (136-145)
--- NOTE | 2018-01-12 07:25 | PDOC.PN ---
- Subjective Encounter Start Date: 01/12/18 Encounter Start Time: 07:23 Subjective: alert, will not or cannot move Rside, speech Nl - Objective Resuscitation Status: Resuscitation Status FULL:Full Resuscitation MAR Reviewed: Yes Vital Signs & Weight: Vital Signs (12 hours) Temp Pulse Resp BP Pulse Ox 01/12/18 03:25 97.9 F 74 16 94/50 L 97 01/11/18 23:50 98.2 F 84 16 103/64 94 L 01/11/18 21:28 97.9 F 74 16 94 L 01/11/18 20:20 99.3 F 95 16 109/66 97 Weight Admit Weight 141 lb 6.4 oz Weight 141 lb 6.4 oz I&O: 01/11/18 01/12/18 01/13/18 06:59 06:59 06:59 Intake Total 1210 3166 Output Total 3 Balance 1207 3166 Result Diagrams: 01/12/18 06:02 01/12/18 06:02 Additional Labs: Accuchecks 01/12/18 01/11/18 01/11/18 05:55 21:04 16:45 POC Glucose 81 83 116 H 01/11/18 01/11/18 11:04 05:39 POC Glucose 92 84 Phys Exam - Physical Examination Neck: no JVD Respiratory: clear to auscultation bilateral Cardiovascular: RRR, no significant murmur Gastrointestinal: soft, non-tender, positive bowel sounds Musculoskeletal: no edema no motion on R, DTRs symetris, good muscle tone Dx/Plan (1) Conversion disorder with abnormal movement, acute episode Code(s): F44.4 - CONVERSION DISORDER WITH MOTOR SYMPTOM OR DEFICIT Status: Acute (2) Hemiparesis Code(s): G81.90 - HEMIPLEGIA, UNSPECIFIED AFFECTING UNSPECIFIED SIDE Status: Acute Qualifiers: Hemiparesis etiology: unspecified Hemiparesis laterality: right dominant side Qualified Code(s): G81.91 - Hemiplegia, unspecified affecting right dominant side Comment: conversion disorder vs atypical migraine; Pt received Depacon for possible migraine, reports no benefit. Pt requesting second neurology opinion, will consult Dr. Harris. (3) GERD (gastroesophageal reflux disease) Code(s): K21.9 - GASTRO-ESOPHAGEAL REFLUX DISEASE WITHOUT ESOPHAGITIS Status: Chronic Comment: on PPI (4) Nephrolithiasis Status: Chronic Comment: stable (5) Protein C deficiency Code(s): D68.59 - OTHER PRIMARY THROMBOPHILIA Status: Chronic Comment: stable - Plan very difficult situation. discuued with parent. similar problem decade ago -: that lasted 3 mos. discuss with cardiology to formulate plan * .
[2018-01-12] MEDS: Sucralfate 1 GM TAB PO SCH ×2 (08:00→17:24)
[2018-01-12] MEDS: sulfaSALAzine 500 MG TAB PO SCH ×3 (11:20→20:03)
[2018-01-12] MEDS: levETIRAcetam 500 mg/5 ml Oral Solution PO SCH ×2 (11:20→20:03)
[2018-01-12] MEDS: Zinc Sulfate 220 MG CAP PO SCH (11:20)
[2018-01-12] MEDS: Folic Acid 1 MG TAB PO SCH (11:20)
[2018-01-12] MEDS: Gabapentin 300 MG CAP PO SCH ×3 (11:21→20:03)
--- NOTE | 2018-01-12 18:42 | PRG ---
DATE OF SERVICE: 01/12/2018 SUBJECTIVE: Mr. Jacob is doing much better today. Last night, it is outlined in the chart he had c hest pain and EKG indicated by the computer reading possible acute SC. All the cardiac enzymes were negative and he did not have an SC. I believe the EKG, likely represent some early repolarization an d it is not dramatically different from what was seen on previous EKGs in the past. The EKG showed slightly higher J point elevation with ST segment slightly higher, but not much differ ent from the previous EKGs years ago. Today, still getting fluids. OBJECTIVE: VITAL SIGNS: Blood pressure 90/60 and pulse 90. LUNGS: Clear. CARDIAC: Normal S1 and S2. ABDOMEN: Soft and nontender. EXTREMITIES: No edema. ASSESSMENT: 1. Relatively low blood pressure of uncertain etiology. 2. Normal echocardiogram. 3. Negative cardiac enzymes. 4. EKG, likely a normal variant. PLAN: 1. Will undergo stress testing tomorrow. 2. Try to get the patient up and around some more.
[2018-01-12] MEDS: Amitriptyline HCl 100 MG TAB PO SCH (20:03)
[2018-01-12] MEDS: Atorvastatin Calcium 40 MG TAB PO SCH (20:03)
[2018-01-12] MEDS: Ketorolac Tromethamine 30 MG/ML VIAL IVP PRN (20:03)
[2018-01-13 05:26] LABS: Anion Gap 9 mmol/L (10-20); BUN (Urea Nitrogen) 17 mg/dL (8.9-20.6); Calc. Creatinine Clearance 89 mL/min (70-130); Calcium 8.8 mg/dL (7.8-10.44); Carbon Dioxide 25 mmol/L (22-29); Chloride 107 mmol/L (98-107); Estimated GFR-MDRD 81; Glucose 81 mg/dL (70-105); Potassium 3.9 mmol/L (3.5-5.1); Sodium 137 mmol/L (136-145)
[2018-01-13 05:27] LABS: #Eosinphils 0.1 thou/uL (0.0-0.7); #Monocytes 0.3 thou/uL (0.11-0.59); #Neutrophils 0.8 thou/uL (1.40-6.50); %Basophils 1.6 % (0.0-1.0); %Eosinophils 6.5 % (0.0-10.0); %Monocytes 12.5 % (0.0-10.0); %Neutrophils 35.4 % (42.0-75.0); Hemoglobin 11.8 g/dL (14.0-18.0); Mean Corpuscular Hemoglobin 33.6 pg (27.0-31.0); Mean Corpuscular Volume 98.8 fl (80.0-94.0); Mean Platelet Volume 7.9 fL (7.4-10.4); Platelet Count 111 thou/uL (130-400); RBC Distribution Width 10.8 % (11.5-14.5); Red Blood Cell (RBC) Count 3.51 mill/uL (4.70-6.10); White Blood Cell (WBC) Count 2.3 thou/uL (4.8-10.8)
[2018-01-13] MEDS: Sodium Chloride 0.9% 1,000 ML IV SCH ×2 (06:22→17:01)
--- NOTE | 2018-01-13 08:53 | EKG ---
Test Reason : STAT Blood Pressure : / mmHG Vent. Rate : 092 BPM Atrial Rate : 092 BPM P-R Int : 154 ms QRS Dur : 096 ms QT Int : 354 ms P-R-T Axes : 075 081 079 degrees QTc Int : 437 ms Normal sinus rhythm ST elevation consider inferior injury or acute infarct /Doubtful since no significant change from tracing. ACUTE [place] / STEMI Abnormal ECG When compared with ECG of 11-JAN-2018 16:22, (Unconfirmed) No significant change was found Confirmed by SHADIA SINGH ([id number]) on 01/13/2018 8:53:23 AM Referred By: CHENG Confirmed By:SHADIA SINGH
--- NOTE | 2018-01-13 08:57 | EKG ---
Test Reason : Blood Pressure : / mmHG Vent. Rate : 087 BPM Atrial Rate : 087 BPM P-R Int : 150 ms QRS Dur : 094 ms QT Int : 346 ms P-R-T Axes : 075 076 072 degrees QTc Int : 416 ms Poor data quality, interpretation may be adversely affected Normal sinus rhythm ST elevation consider inferior injury or acute infarct /Doubtful as no change from 09/14/13 or tracing. ACUTE GA / STEMI Abnormal ECG When compared with ECG of 12-SEP-2016 18:24, No significant change was found Confirmed by SHADIA SINGH ([id number]) on 01/13/2018 8:57:29 AM Referred By: SPENSER Confirmed By:SHADIA SINGH
--- NOTE | 2018-01-13 09:24 | PDOC.PN ---
- Subjective Encounter Start Date: 01/13/18 Encounter Start Time: 09:22 Subjective: no chest pain, minimal motion on right - Objective Resuscitation Status: Resuscitation Status FULL:Full Resuscitation MAR Reviewed: Yes Vital Signs & Weight: Vital Signs (12 hours) Temp Pulse Resp BP Pulse Ox 01/13/18 07:48 98.2 F 80 14 93/52 L 94 L 01/13/18 03:24 97.7 F 72 16 87/44 L 96 01/12/18 23:20 97.9 F 72 16 95/46 L 95 Weight Admit Weight 141 lb 6.4 oz Weight 141 lb 6.4 oz I&O: 01/12/18 01/13/18 01/14/18 06:59 06:59 06:59 Intake Total 4866 2846 Output Total 650 950 Balance 4216 1896 Result Diagrams: 01/13/18 04:51 01/13/18 04:51 Additional Labs: Accuchecks 01/13/18 01/12/18 01/12/18 05:28 21:06 16:29 POC Glucose 83 115 H 156 H 01/12/18 11:21 POC Glucose 100 Phys Exam - Physical Examination Neck: no JVD Respiratory: clear to auscultation bilateral Cardiovascular: RRR, no significant murmur Gastrointestinal: soft, non-tender, positive bowel sounds Musculoskeletal: no edema good tone , reflexes on right, moves arm a little Dx/Plan (1) Conversion disorder with abnormal movement, acute episode Code(s): F44.4 - CONVERSION DISORDER WITH MOTOR SYMPTOM OR DEFICIT Status: Acute (2) Hemiparesis Code(s): G81.90 - HEMIPLEGIA, UNSPECIFIED AFFECTING UNSPECIFIED SIDE Status: Acute Qualifiers: Hemiparesis etiology: unspecified Hemiparesis laterality: right dominant side Qualified Code(s): G81.91 - Hemiplegia, unspecified affecting right dominant side Comment: conversion disorder vs atypical migraine; Pt received Depacon for possible migraine, reports no benefit. Pt requesting second neurology opinion, will consult Dr. Harris. (3) GERD (gastroesophageal reflux disease) Code(s): K21.9 - GASTRO-ESOPHAGEAL REFLUX DISEASE WITHOUT ESOPHAGITIS Status: Chronic Comment: on PPI (4) Nephrolithiasis Status: Chronic Comment: stable (5) Protein C deficiency Code(s): D68.59 - OTHER PRIMARY THROMBOPHILIA Status: Chronic Comment: stable - Plan no real change, stress test pending * .
[2018-01-13] MEDS: Ketorolac Tromethamine 30 MG/ML VIAL IVP PRN ×2 (11:59→17:36)
[2018-01-13] MEDS ORDERED: Regadenoson 0.4 MG/5 ML SYRINGE ONE (12:05)
[2018-01-13] MEDS: Sucralfate 1 GM TAB PO SCH ×2 (12:30→16:15)
[2018-01-13] MEDS: levETIRAcetam 500 mg/5 ml Oral Solution PO SCH (13:19)
[2018-01-13] MEDS: Folic Acid 1 MG TAB PO SCH (13:20)
[2018-01-13] MEDS: Zinc Sulfate 220 MG CAP PO SCH (13:20)
[2018-01-13] MEDS: Gabapentin 300 MG CAP PO SCH ×2 (13:20→16:15)
[2018-01-13] MEDS: sulfaSALAzine 500 MG TAB PO SCH ×2 (13:20→16:15)
--- NOTE | 2018-01-13 13:40 | NM ---
MYOCARDIAL PERFUSION EVALUATION: INDICATION: Chest pain. RADIOPHARMACEUTICAL: 32 mCi Technetium 99m sestamibi IV with stress and 10 mCi Technetium 99m sestamibi IV with rest. FINDINGS: When comparing the rest and stress images, no reversible myocardial perfusion defect is evident. The estimated LVEF is 54%. There is normal wall motion and thickening. IMPRESSION: 1. No scintigraphic evidence to suggest reversible myocardial ischemia. 2. Normal wall motion and thickening with estimated left ventricular ejection fraction of 54%. POS: [facility]
[2018-01-13 15:23] VITALS: BP 86/48; TEMP 98.4
--- NOTE | 2018-01-13 17:15 | DIS ---
DATE OF ADMISSION: 01/08/2018 DATE OF DISCHARGE: 01/13/2018 PRIMARY CARE PROVIDER: Armen Macdonald M.D. DISPOSITION: Discharged home. 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 DISCHARGE MEDICATIONS: Same as his home medicines, amitriptyline 100 mg at bedtime, Lipitor 40 mg a day, Bentyl 10 mg 3 times a day p.r.n., folic acid 0.5 mg a day, Neurontin 300 mg 3 times a day, hydr oxyzine 25 mg p.o. q.6 hours p.r.n., Sucralfate 1 gram b.i.d., sulfasalazine 1000 mg p.o. t.i.d., Kep pra 500 mg b.i.d., Protonix 40 mg a day, amitriptyline. ALLERGIES: PROMETHAZINE, ACETAMINOPHEN, CIPRO, HYDROCODONE, CODEINE, REGLAN. CODE STATUS: FULL. PENDING AT THE TIME OF DISCHARGE: Nothing. DIET: Regular. HOSPITAL COURSE: The patient presented in the emergency room with right-sided weakness, protein C de ficiency, seizure disorder, Crohn's, neuropathy, GERD, dysphagia with 4-day history of right extremit y weakness. He has a history of being paralyzed on the right for 3-4 months 13 years ago, which was attributed to his seizure disorder. Initial laboratory with CBC and comp metabolic profile were unre markable. CT of the brain showed no contrast. His neurological exam showed variable weakness during his hospital stay. Consultation by Dr. Jennifer Miranda. He has giveaway weakness in the right upper and lower extremity with normal muscle tone suggesting a hysterical conversion reaction. No further alex rological workup was recommended. The MRI had shown no evidence of any acute intracranial process. During his hospital stay, his hemoglobin ranged from 11.8 to 14.4, white count ranged from 2.3-3.0, p latelet count ranged from 111-142. Chemistries remained normal. Urine was clear. Toxicology screen revealed only his Keppra and tricyclics. Venous cultures were negative. CT of the chest and angiog jose were done which was nonrevealing. On 14/09/2018, the patient complained of chest pain and had an abnormal electrocardiogram. Cardiac enzymes were normal. EKG with minimal change, although the c omputer read it is an acute MD. The patient underwent a nuclear medicine stress test which is normal . Currently, the patient is in no distress. Cardiovascular exam is normal. His vital signs show a chronic low normal to borderline low blood pressure with no tachycardia, respiratory problem. He sti ll has normal muscle tone in his right arm gives way on testing and has normal deep tendon reflexes. This afternoon, I had a conversation with him and his mother and family and described a diagnosis of a conversion reaction. They are unaccepting of this is a real thing. I have explained to them we h ave nothing further to offer. Mother asked me what she should do and I have explained the only thing I suspect she could do to obtain psychiatric evaluation further. We did not have any psychiatric se rvices available here for nonlife threatening neurological problems that are only things for people w ith extreme agitation, suicide disorders, etc. They are agreeable to take him home and have been ask ed to see his PCP in 1 week for followup.
== END 2018-01-13 17:49 | disposition home or self-care (01) | DRG 880 ==
LOC: ERS 00:02 → 2SE 01:56
PROVIDERS: ADMIT Internal Medicine; ATTEND Internal Medicine
PROC: 0D768ZZ Dilation of Stomach, Via Natural or Artificial Opening Endoscopic (ICD-10-PCS; principal; 2018-01-08)
DX: F44.4 Conversion disorder with motor symptom or deficit (principal); D68.59 Other primary thrombophilia; I95.9 Hypotension, unspecified; G81.91 Hemiplegia, unspecified affecting right dominant side; G62.9 Polyneuropathy, unspecified; K50.90 Crohn's disease, unspecified, without complications; Z88.5 Allergy status to narcotic agent; Z88.8 Allergy status to other drugs, medicaments and biological substances; G40.909 Epilepsy, unspecified, not intractable, without status epilepticus; K21.9 Gastro-esophageal reflux disease without esophagitis; R13.10 Dysphagia, unspecified; N20.0 Calculus of kidney; Z91.018 Allergy to other foods; N18.9 Chronic kidney disease, unspecified; R27.0 Ataxia, unspecified; H53.8 Other visual disturbances
CPT/HCPCS: 36415; 36416; 70551; 71045; 71275; 78452; 80048; 80061; 80177; 80306; 81003; 82550; 83605; 83735; 84484; 85025; 85652; 86140; 87040; 93005; 93010; 93017; 93306; 99285; J2270; A4216; A9500; G8978-GP-CK; G8979-GP-CI; G8987-GO-CL; G8988-GO-CJ; G8996-GN-CJ; G8997-GN-CI; J1644; J1885; J2704; J2785; J7050

== ENCOUNTER 2018-07-23 09:25 | Outpatient (CLI) | payer MEDICARE ==
[~2018-07-23 09:25] MED LIST: Gadobenate Dimeglumine 529 MG/1 ML (20ML VIAL) ONE
--- NOTE | 2018-07-23 13:44 | MRI ---
PRE AND POST CONTRAST ENHANCED MRI OF THE BRAIN: History: 37-year-old with history of epilepsy seizures (G40.A09) Technique: Multiplanar, multisequence pre and post contrast enhanced MRI images of the brain obtained. Comparison: 08-28-06 FINDINGS: Images again demonstrate an area of signal abnormality seen in the right internal auditory canal. Thi s lesion appears to have been stable since previous exam from 2005 and may represent degenerative aco ustic neuroma. No significant evidence of growth or interval change is seen. There is no other intrac ranial masses or lesions noted. No evidence of acute strokes or abnormalities seen. Normal intracrani al flow voids are seen in the major intracranial vessels. IMPRESSION: Stable right internal auditory canal lesion, unchanged since the previous exam. No other significant intracranial pathology is seen. POS: [facility]
--- NOTE | 2018-07-23 14:20 | MRI ---
MRI CERVICAL SPINE WITHOUT CONTRAST: Date: 07/23/18 HISTORY: Epileptic syndrome. Seizures. Patient's right side became numb. COMPARISON: None. TECHNIQUE: Cervical spine MRI is performed without intravenous Gadolinium administration. Multisequential, multi planar imaging is performed. FINDINGS: Appropriate T1 marrow signal intensity of the cervical vertebra. Vertebral body height is maintained. No fracture. No significant STIR hyperintensity to suggest vertebral body edema or ligamentous injur y. Visualized brain parenchyma, cervicomedullary junction, cervical cord, and the upper thoracic cord rand ve a normal size and signal intensity. C2-C3: No significant disc osteophyte complex. No significant central canal stenosis. Neural foramin a are patent. C3-C4: No significant disc osteophyte complex. No significant central canal stenosis. Foramina are p atent. C4-C5: No significant disc osteophyte complex. No significant central canal stenosis. Neural foramin a are patent. C5-C6: No significant disc osteophyte complex. No significant central canal stenosis. Neural foramin a are patent. C6-C7: No significant disc osteophyte complex. No significant central canal stenosis. Neural foramin a are patent. C7-T1: No significant disc osteophyte complex. No significant central canal stenosis. Neural foramin a are patent. IMPRESSION: No significant central canal stenosis or foraminal narrowing. POS: [facility]
== END 2018-07-23 09:26 | disposition home or self-care (01) ==
LOC: SCSMRI 09:25
PROVIDERS: ATTEND Psychiatry & Neurology Neurology
DX: G40.A09 Absence epileptic syndrome, not intractable, without status epilepticus (principal); H61.91 Disorder of right external ear, unspecified
CPT/HCPCS: 70553; 72141; A9579

== ENCOUNTER 2019-02-15 16:43 | Inpatient (IN) | payer MEDICARE ==
[2019-02-15 17:36] LABS: #Basophils 0.1 thou/uL (0.0-0.2); #Eosinphils 0.1 thou/uL (0.0-0.7); #Lymphocytes 0.8 thou/uL (1.20-3.40); #Monocytes 0.2 thou/uL (0.11-0.59); #Neutrophils 1.1 thou/uL (1.40-6.50); %Basophils 2.7 % (0.0-1.0); %Lymphocytes 35.9 % (21.0-51.0); %Neutrophils 47.4 % (42.0-75.0); Hemoglobin 11.8 g/dL (14.0-18.0); Mean Corpuscular HGB CONC 34.8 g/dL (32.0-36.0); Mean Corpuscular Hemoglobin 31.8 pg (27.0-31.0); Mean Corpuscular Volume 91.4 fL (78.0-98.0); Mean Platelet Volume 6.9 fL (7.4-10.4); Platelet Count 164 thou/uL (130-400); RBC Distribution Width 12.1 % (11.5-14.5); Red Blood Cell (RBC) Count 3.72 mill/uL (4.70-6.10); White Blood Cell (WBC) Count 2.3 thou/uL (4.8-10.8)
[2019-02-15 17:52] LABS: ALT (SGPT) 38 U/L (8-55); AST (SGOT) 30 U/L (5-34); Albumin 4.4 g/dL (3.5-5.0); Alkaline Phosphatase 58 U/L (40-150); Anion Gap 12 mmol/L (10-20); BUN (Urea Nitrogen) 9 mg/dL (8.9-20.6); Bilirubin, Total 0.3 mg/dL (0.2-1.2); Calc. Creatinine Clearance 0 mL/min (70-130); Calcium 9.6 mg/dL (7.8-10.44); Carbon Dioxide 25 mmol/L (22-29); Chloride 92 mmol/L (98-107); Estimated GFR-MDRD Greater than 90; Globulin 2.5 g/dL (2.4-3.5); Glucose 93 mg/dL (70-105); Potassium 4.1 mmol/L (3.5-5.1); Protein, Total 6.9 g/dL (6.0-8.3); Sodium 125 mmol/L (136-145)
[2019-02-15 17:57] LABS: Bilirubin Negative (Negative); Blood, Urine Trace (Negative); Clarity Clear (Clear); Glucose, Urine (Dipstick) Negative (Negative); Leukocyte Negative (Negative); Nitrite Negative (Negative); Protein, Urine (Dipstick) Negative (Neg-Trace); pH, Urine 6.5 (5.0-9.0)
[2019-02-15 17:58] LABS: Bacteria/HPF Rare-Few HPF (None Seen); RBC/HPF 0-3 HPF (0-3); Squamous Epithelial None Seen HPF (0-3); WBC/HPF None Seen HPF (0-3)
--- NOTE | 2019-02-15 18:01 | RAD ---
LEFT FOOT: 02/15/19 Three views. HISTORY: Erythema right great toe. Pain. Tarsals, metatarsals and phalanges appear unremarkable. No osseous abnormality. No significant soft tissue abnormality seen. IMPRESSION: No acute findings. POS: [facility]
--- NOTE | 2019-02-15 19:08 | RAD ---
AP CHEST: 02/15/19 HISTORY: Fever. The lungs appear clear. No infiltrate seen. Heart and mediastinum unremarkable. IMPRESSION: Negative portable chest. POS: [facility]
[2019-02-15] MEDS ORDERED: Ondansetron ODT 4 MG TAB SL PRN (20:19)
[2019-02-15] MEDS ORDERED: Ondansetron PF 4 MG/2 ML Vial IVP PRN (20:19)
[2019-02-15] MEDS ORDERED: Acetaminophen 325 MG TAB PO PRN ×2 (20:19→23:37)
[2019-02-15 20:40] VITALS: BMI 19.3
[2019-02-15] MEDS ORDERED: Bisacodyl 10 MG SUPP PR PRN (23:37)
[2019-02-15] MEDS ORDERED: Bisacodyl 5 MG TAB PO PRN (23:37)
[2019-02-15] MEDS ORDERED: HumaLOG 300 UNITS/3 ML VIAL SC PRN (23:38)
[2019-02-15] MEDS ORDERED: Dextrose 50% Abboject 50 ML SYRINGE SLOW IVP PRN (23:38)
[2019-02-15] MEDS ORDERED: Dextrose 5% in Water 1,000 ML IV PRN (23:38)
[2019-02-16] MEDS: Ketorolac Tromethamine 30 MG/ML VIAL IVP PRN ×3 (00:43→20:16)
[2019-02-16] MEDS: cefTRIAXone\\ROCEPHIN 1 GM in Sodium Chloride 0.9% 100 ML IVPB SCH (00:44)
[2019-02-16] MEDS: Amitriptyline HCl 100 MG TAB PO SCH (00:44)
--- NOTE | 2019-02-16 04:38 | HP ---
CHIEF COMPLAINT: Left great toe pain. HISTORY OF PRESENT ILLNESS: The patient is a 38-year-old male with a history of protein C deficiency, seizure disorder, Crohn disease, CVA with right-sided weakness, who presents to the hospital with complaints of left great toe pain. The patient stated that he initially noticed a growth about a couple of weeks ago on his left toe, which he thought most likely was fungal, so he kept putting fungal cream on his left great toe. The patient then stated that he went to his PCP about 3 or 4 days ago since he started having some erythema around the left great toe. The PCP gave him some antibiotics. He took a total of 4 days of antibiotics. However, today, the patient started having fevers and also chills, which concerned him so he came into the ER for further evaluation. The patient denies any nausea, vomiting, any diarrhea, any abdominal pain. PAST MEDICAL HISTORY: As I mentioned; 1. Seizure disorder. 2. Protein C deficiency. 3. Crohn disease. 4. CVA with right-sided weakness. 5. GERD. 6. Neuropathy of the bilateral lower extremities. PAST SURGICAL HISTORY: He has had a lipoma extracted from his arm. He has had an esophageal dilation. FAMILY HISTORY: No history of heart disease, cancers, or strokes. ALLERGIES: HE IS ALLERGIC TO CIPROFLOXACIN, CODEINE, NORCO, REGLAN, PHENERGAN, ORANGES AND CHOCOLATES. HOME MEDICATIONS: The patient takes the following. 1. The patient is on amitriptyline 100 mg daily. 2. Gabapentin 300 mg t.i.d. 3. Keppra 1500 mg b.i.d. 4. Pantoprazole 40 mg daily. 5. Trileptal 300 mg b.i.d. 6. Sulfasalazine 1000 mg t.i.d. 7. Advair 1 puff b.i.d. REVIEW OF SYSTEMS: All negative except for the ones mentioned above in the HPI. SOCIAL HISTORY: He denies any alcohol use, drug use, or smoking history. He is a full code. Lives with his family. PHYSICAL EXAMINATION: VITAL SIGNS: Temperature of 98.3, heart rate 86, respirations 20, oxygen saturation 95% on room air, blood pressure 105/67. GENERAL: He is awake, alert, and oriented x3. Does not appear in any distress. HEENT: Normocephalic, atraumatic. No lymphadenopathy noted. Pupils are equal and reactive to light. CV: S1 and S2 present. No murmurs, rubs, or gallops. LUNGS: Clear to auscultation. No rhonchi or wheezes noted. ABDOMEN: Soft, bowel sounds are present x2. Nontender upon palpation. EXTREMITIES: No edema. Pedal pulses are present x2. NEUROVASCULAR: He does have weakness to his right upper and right lower extremities. Left side is stable. SKIN: His left great toe has mild erythema around the great toe. He does have a very tiny growth that appears to be around his cuticle area. It is soft and appears to be like just a little piece of tissue. The patient does have some pain upon palpation of his 1st tarsal joint. LABORATORY DATA: As of the following; WBC of 2.3, hemoglobin of 11.8, hematocrit of 34.0, platelets of 164, and he has no bands. Chemistry; sodium of 125, potassium of 4.1, BUN of 9, creatinine of 0.93. C-reactive protein is less than 0.50. He did have an x-ray of the left foot, which did not indicate any acute abnormalities. No soft tissue abnormality was seen. He also had a chest x-ray done which did not indicate any acute abnormalities. ASSESSMENT AND PLAN: The patient is a 38-year-old male who presents to the hospital with fevers, chills, and some left great toe pain. 1. Sepsis, possible secondary to his left great toe cellulitis. I will start him on some broad-spectrum antibiotics. I have also consulted Podiatry for this smaller tissue around his cuticle area might need to be removed. Blood cultures are done. I will also start hydrating this patient gently. 2. Hyponatremia. I will check serum osmolality and also urine sodium and urine osmolality. 3. Seizure disorder. We will continue his home medications of seizures. 4. Neuropathy. We will continue his gabapentin. 5. Deep venous thrombosis prophylaxis. We will put the patient on SCDs or Lovenox. 6. Crohn disease, currently controlled. We will continue his sulfasalazine. Job ID: [id number]
[2019-02-16 05:31] LABS: #Eosinphils 0.1 thou/uL (0.0-0.7); #Monocytes 0.3 thou/uL (0.11-0.59); #Neutrophils 1.8 thou/uL (1.40-6.50); %Basophils 0.5 % (0.0-1.0); %Eosinophils 2.7 % (0.0-10.0); %Lymphocytes 30.2 % (21.0-51.0); %Monocytes 10.1 % (0.0-10.0); %Neutrophils 56.5 % (42.0-75.0); Hemoglobin 10.9 g/dL (14.0-18.0); Mean Corpuscular HGB CONC 34.8 g/dL (32.0-36.0); Mean Corpuscular Hemoglobin 32.5 pg (27.0-31.0); Mean Corpuscular Volume 93.5 fL (78.0-98.0); Mean Platelet Volume 6.8 fL (7.4-10.4); Platelet Count 159 thou/uL (130-400); RBC Distribution Width 12.7 % (11.5-14.5); Red Blood Cell (RBC) Count 3.37 mill/uL (4.70-6.10); White Blood Cell (WBC) Count 3.2 thou/uL (4.8-10.8)
[2019-02-16 05:59] LABS: Anion Gap 13 mmol/L (10-20); BUN (Urea Nitrogen) 13 mg/dL (8.9-20.6); Calc. Creatinine Clearance 91 mL/min (70-130); Calcium 9.3 mg/dL (7.8-10.44); Carbon Dioxide 23 mmol/L (22-29); Chloride 93 mmol/L (98-107); Estimated GFR-MDRD Greater than 90; Glucose 82 mg/dL (70-105); Potassium 3.9 mmol/L (3.5-5.1); Sodium 125 mmol/L (136-145)
[2019-02-16] MEDS ORDERED: Dicyclomine 10 MG CAP PO PRN (07:16)
[2019-02-16] MEDS ORDERED: PROVENTIL INHALER 6.7 G (200 INHALATIONS) INH PRN (07:16)
[2019-02-16] MEDS ORDERED: Sodium Chloride 0.65% Nasal 44 ML BOT EA NARE PRN (07:17)
[2019-02-16] MEDS ORDERED: hydrALAZINE 20 MG/ML VIAL SLOW IVP PRN (07:17)
[2019-02-16] MEDS ORDERED: Loratadine 10 MG TAB PO PRN (07:17)
[2019-02-16] MEDS ORDERED: Senokot S 8.6-50 MG TAB PO PRN (07:17)
[2019-02-16] MEDS ORDERED: Loperamide HCl 2 MG CAP PO PRN (07:17)
[2019-02-16] MEDS ORDERED: Zolpidem Tartrate 5 MG TAB PO PRN (07:17)
[2019-02-16] MEDS ORDERED: Diabetic Tussin 200 MG/10 ML UDCUP PO PRN (07:17)
[2019-02-16] MEDS ORDERED: Cepastat Lozenges 1 LOZ PO PRN (07:17)
[2019-02-16] MEDS ORDERED: Artificial Tears 18 DROP/0.9 ML EA EYE PRN (07:17)
[2019-02-16] MEDS ORDERED: Eucerin (Mineral Oil/Petrolatum,White) 30 gm Jar TOP PRN (07:17)
[2019-02-16] MEDS ORDERED: Ondansetron PF 4 MG/2 ML Vial IVP PRN (07:17)
[2019-02-16] MEDS ORDERED: Ondansetron ODT 4 MG TAB PO PRN (07:17)
[2019-02-16] MEDS: sulfaSALAzine 500 MG TAB PO SCH ×3 (07:52→20:20)
[2019-02-16] MEDS: Enoxaparin Sodium 40 MG/0.4 ML SYRINGE SC SCH (07:52)
[2019-02-16] MEDS: Gabapentin 300 MG CAP PO SCH ×3 (07:53→20:16)
[2019-02-16] MEDS: OXcarbazepine 300 MG TAB PO SCH ×2 (07:53→20:21)
[2019-02-16] MEDS: levETIRAcetam 500 MG TAB PO SCH ×2 (07:53→20:21)
[2019-02-16] MEDS: Mometasone/Formoterol 120 PUFF INHALER INH SCH ×2 (08:44→18:46)
[2019-02-16] MEDS: Lubiprostone 24 MCG CAP PO SCH ×2 (09:05→17:14)
[2019-02-16] MEDS: Saccharomyces boulardii 250 MG CAP PO SCH (09:06)
--- NOTE | 2019-02-16 10:30 | PDOC.PN ---
- Subjective Encounter Start Date: 02/16/19 Encounter Start Time: 07:50 -: old records requested/rev Patient seen and examined. No new complaints. No overnight events - Objective Resuscitation Status - Order Detail: 02/15/19 23:37 Resuscitation Status Routine Resuscitation Status: FULL: Full Resuscitation MAR Reviewed: Yes Vital Signs & Weight: Vital Signs (12 hours) Temp Pulse Resp BP Pulse Ox 02/16/19 08:44 72 16 98 02/16/19 08:00 96 02/16/19 07:41 97.8 F 74 18 102/65 96 02/16/19 04:00 98.7 F 77 20 105/66 02/15/19 23:44 98.3 F 86 20 105/67 Weight Weight 130 lb 8 oz I&O: 02/15/19 02/16/19 02/17/19 06:59 06:59 06:59 Intake Total 360 Balance 360 Result Diagrams: 02/16/19 05:14 02/16/19 05:14 Additional Labs: Accuchecks 02/16/19 02/15/19 04:49 21:18 POC Glucose 96 96 Radiology Reviewed by me: Yes EKG Reviewed by me: Yes Phys Exam - Physical Examination Constitutional: NAD HEENT: PERRLA, moist MMs, sclera anicteric Neck: no JVD, supple Respiratory: no wheezing, no rales, no rhonchi Cardiovascular: RRR, no significant murmur, no rub Gastrointestinal: soft, non-tender, no distention, positive bowel sounds Musculoskeletal: no edema, pulses present Neurological: non-focal, normal sensation, moves all 4 limbs Lymphatic: no nodes Psychiatric: normal affect, A&O x 3 Skin: no rash, normal turgor Dx/Plan (1) Cellulitis of great toe, left Code(s): L03.032 - CELLULITIS OF LEFT TOE Status: Acute (2) Hyponatremia Code(s): E87.1 - HYPO-OSMOLALITY AND HYPONATREMIA Status: Acute (3) Leucopenia Code(s): D72.819 - DECREASED WHITE BLOOD CELL COUNT, UNSPECIFIED Status: Acute (4) Sepsis Code(s): A41.9 - SEPSIS, UNSPECIFIED ORGANISM Status: Acute (5) Anemia, normocytic normochromic Code(s): D64.9 - ANEMIA, UNSPECIFIED Status: Chronic (6) Asthma Code(s): J45.909 - UNSPECIFIED ASTHMA, UNCOMPLICATED Status: Chronic (7) Crohn's disease Code(s): K50.90 - CROHN'S DISEASE, UNSPECIFIED, WITHOUT COMPLICATIONS Status: Chronic (8) GERD (gastroesophageal reflux disease) Code(s): K21.9 - GASTRO-ESOPHAGEAL REFLUX DISEASE WITHOUT ESOPHAGITIS Status: Chronic Comment: (9) Nephrolithiasis Status: Chronic Comment: (10) Neuropathy Code(s): G62.9 - POLYNEUROPATHY, UNSPECIFIED Status: Chronic (11) Protein C deficiency Code(s): D68.59 - OTHER PRIMARY THROMBOPHILIA Status: Chronic Comment: (12) Seizure disorder Code(s): G40.909 - EPILEPSY, UNSP, NOT INTRACTABLE, WITHOUT STATUS EPILEPTICUS Status: Chronic - Plan cont current plan of care, continue antibiotics * continue rocephin * check TSH, cortisol, osmolarity * medication reviewed as below * symptomatic treatment * podiatry consulted. * repeat labs tomorrow Review of Systems - Review of Systems ENT: negative: Ear Pain, Ear Discharge, Nose Pain, Nose Discharge, Nose Congestion, Mouth Pain, Mouth Swelling, Throat Pain, Throat Swelling, Other Respiratory: negative: Cough, Dry, Shortness of Breath, Hemoptysis, SOB with Excertion, Pleuritic Pain, Sputum, Wheezing Cardiovascular: negative: chest pain, palpitations, orthopnea, paroxysmal nocturnal dyspnea, edema, light headedness, other Gastrointestinal: negative: Nausea, Vomiting, Abdominal Pain, Diarrhea, Constipation, Melena, Hematochezia, Other Genitourinary: negative: Dysuria, Frequency, Incontinence, Hematuria, Retention , Other Musculoskeletal: negative: Neck Pain, Shoulder Pain, Arm Pain, Back Pain, Hand Pain, Leg Pain, Foot Pain, Other - Medications/Allergies Allergies/Adverse Reactions: Allergies Allergy/AdvReac Type Severity Reaction Status Date / Time orange juice [[place]abun Juice] Allergy Intermediate Hives Verified 12/17/13 00:01 promethazine HCl Allergy Mild Anxiety Verified 02/15/19 20:22 [From Phenergan] acetaminophen [From [place]] Allergy Verified 02/15/19 20:22 chocolate flavor Allergy Hives Verified 02/15/19 20:22 ciprofloxacin [From Cipro] Allergy Verified 02/15/19 20:22 hydrocodone Allergy Verified 02/15/19 20:22 metoclopramide [From Reglan] Allergy Verified 02/15/19 20:22 codeine AdvReac Intermediate Nausea Verified 02/15/19 20:22 Medications: Current Medications Albuterol Sulfate (Proventil Hfa) 2 puff INH Q6H PRN PRN Reason: SOB &/or Wheezing Amitriptyline HCl (Elavil) 100 mg PO 0200 [facility] Last Admin: 02/16/19 00:44 Dose: 100 mg Artificial Tears (Tears Naturale) 2 drop EA EYE PRN PRN PRN Reason: Dry Eyes Bisacodyl (Dulcolax) 10 mg CO DAILYPRN PRN PRN Reason: Constipation Bisacodyl (Dulcolax) 10 mg PO DAILYPRN PRN PRN Reason: Constipation Dicyclomine HCl (Bentyl) 10 mg PO TID PRN PRN Reason: GI Cramping Enoxaparin Sodium (Lovenox) 40 mg SC 0900 [facility] Last Admin: 02/16/19 07:52 Dose: 40 mg Gabapentin (Neurontin) 300 mg PO TID [facility] Last Admin: 02/16/19 07:53 Dose: 300 mg Glucagon (Glucagon) 1 mg IM PRN PRN PRN Reason: Hypoglycemia Guaifenesin (Robitussin Sf) 200 mg PO Q4H PRN PRN Reason: Cough Hydralazine HCl (Apresoline) 10 mg SLOW IVP Q4H PRN PRN Reason: SBP > 180 and HR < 70 Ceftriaxone Sodium 1 gm/ (Sodium Chloride) 100 mls @ 200 mls/hr IVPB Q24HR [facility] Last Admin: 02/16/19 00:44 Dose: 100 mls Ketorolac Tromethamine (Toradol) 15 mg IVP Q6H PRN PRN Reason: Pain Stop: 02/21/19 00:27 Last Admin: 02/16/19 07:56 Dose: 15 mg Levetiracetam (Keppra) 1,500 mg PO BID [facility] Last Admin: 02/16/19 07:53 Dose: 1,500 mg Loperamide HCl (Imodium) 2 mg PO PRN PRN PRN Reason: Diarrhea/Loose Stools Loratadine (Claritin) 10 mg PO DAILYPRN PRN PRN Reason: Sinus Symptoms Lubiprostone (Amitiza) 24 mcg PO BID-[facility] Last Admin: 02/16/19 09:05 Dose: 24 mcg Mineral Oil/White Petrolatum (Eucerin Cream) 0 gm TOP BIDPRN PRN PRN Reason: Dry Skin Mometasone Furoate/Formoterol Fumar (Dulera 200 Mcg/5 Mcg Inhaler) 2 puff INH BID-RT [facility] Last Admin: 02/16/19 08:44 Dose: 2 puff Ondansetron HCl (Zofran Odt) 4 mg PO Q6H PRN PRN Reason: Nausea/Vomiting Ondansetron HCl (Zofran) 4 mg IVP Q6H PRN PRN Reason: Nausea/Vomiting Oxcarbazepine (Trileptal) 300 mg PO BID [facility] Last Admin: 02/16/19 07:53 Dose: 300 mg Pantoprazole Sodium (Protonix) 40 mg PO DAILY [facility] Last Admin: 02/16/19 07:53 Dose: 40 mg Saccharomyces Boulardii (Florastor) 250 mg PO DAILY [facility] Last Admin: 02/16/19 09:06 Dose: 250 mg Senna/Docusate Sodium (Senokot S) 2 tab PO BID PRN PRN Reason: Constipation Sodium Chloride (Flush - Normal Saline) 10 ml IVF Q12HR [facility] Last Admin: 02/16/19 07:53 Dose: 10 ml Sodium Chloride (Flush - Normal Saline) 10 ml IVF PRN PRN PRN Reason: Saline Flush Sodium Chloride ([place] Nasal [place] 0.65%) 0 ml EA NARE QIDPRN PRN PRN Reason: Nasal Congestion Sulfasalazine (Azulfidine) 1,000 mg PO TID [facility] Last Admin: 02/16/19 07:52 Dose: 1,000 mg Throat Lozenges (Cepastat Lozenges) 1 lolis PO Q2H PRN PRN Reason: Sore Throat Zolpidem Tartrate (Ambien) 5 mg PO HSPRN PRN PRN Reason: Insomnia
--- NOTE | 2019-02-16 23:52 | CON ---
DATE OF CONSULTATION: 02/16/2019 REASON FOR CONSULTATION: Left great toe infection. HISTORY OF PRESENT ILLNESS: This is a 38-year-old male, who was seen at bedside today. He was here today, noticed some pain and swelling to the left great toe. This started couple of weeks ago, thought it was fungus, so he started with a fungal infection, went to his primary care doctor, who put him on some antibiotics. He took few days of this and it actually worsened during that period of time. So, he presented to the emergency department, and I admitted him for antibiotics and further evaluation. PAST MEDICAL HISTORY: 1. Seizure disorder. 2. Protein C deficiency. 3. Crohn disease. 4. CVA with right-sided weakness. 5. GERD. 6. Bilateral lower extremity neuropathy. PAST SURGICAL HISTORY: Lipoma extraction from his arm and esophageal dilation. FAMILY HISTORY: No history of heart disease, cancer, or stroke. MEDICATIONS: 1. Amitriptyline. 2. Gabapentin. 3. Keppra. 4. Pantoprazole. 5. Trileptal. 6. Sulfasalazine. 7. Advair. ALLERGIES: 1. CIPRO. 2. CODEINE. 3. NORCO. 4. REGLAN. 5. PHENERGAN. 6. ORANGES. 7. CHOCOLATE. REVIEW OF SYSTEMS: All negative except for abnormality to the left great toe. SOCIAL HISTORY: He denies alcohol use, drug use, or smoking history. PHYSICAL EXAMINATION: Focused left lower extremity exam: VASCULAR: Dorsalis pedis and posterior tibial pulses are palpable. Immediate capillary refill time to the distal aspect of all toes. No swelling. No varicosities present. NEUROLOGICAL: Light touch sensation intact to the left lower extremity. DERMATOLOGICAL: Left great toe nail slightly incurvated laterally. There is some mild erythema localized to the proximal and lateral nail fold with some granuloma formation at this area. No drainage at this time. ASSESSMENT: Ingrown toenail with paronychia and granuloma formation. PLAN: Discussed with the patient the condition and treatment options. No further intervention required at this visit. Upon discharge, he can follow up with me in my office and we will remove the lateral border of the nail, which will allow this toe to calm down and heal itself. We should probably do this as soon as possible to prevent any worsening infection. He is okay for discharge as per the foot once he is medically stable per the hospitalist. I appreciate the consult. Job ID: [id number]
[2019-02-17] MEDS: cefTRIAXone\\ROCEPHIN 1 GM in Sodium Chloride 0.9% 100 ML IVPB SCH ×2 (00:26→23:25)
[2019-02-17] MEDS: Amitriptyline HCl 100 MG TAB PO SCH (02:43)
[2019-02-17 06:44] LABS: #Eosinphils 0.1 thou/uL (0.0-0.7); #Lymphocytes 1.2 thou/uL (1.20-3.40); #Monocytes 0.4 thou/uL (0.11-0.59); #Neutrophils 2.1 thou/uL (1.40-6.50); %Basophils 1.3 % (0.0-1.0); %Lymphocytes 31.1 % (21.0-51.0); %Monocytes 10.6 % (0.0-10.0); %Neutrophils 54.1 % (42.0-75.0); Mean Corpuscular Hemoglobin 32.8 pg (27.0-31.0); Mean Corpuscular Volume 93.8 fL (78.0-98.0); Mean Platelet Volume 7.1 fL (7.4-10.4); Platelet Count 159 thou/uL (130-400); RBC Distribution Width 12.5 % (11.5-14.5); Red Blood Cell (RBC) Count 3.35 mill/uL (4.70-6.10); White Blood Cell (WBC) Count 3.8 thou/uL (4.8-10.8)
[2019-02-17 07:01] LABS: Anion Gap 13 mmol/L (10-20); BUN (Urea Nitrogen) 10 mg/dL (8.9-20.6); Calc. Creatinine Clearance 98 mL/min (70-130); Calcium 9.2 mg/dL (7.8-10.44); Carbon Dioxide 22 mmol/L (22-29); Chloride 88 mmol/L (98-107); Estimated GFR-MDRD Greater than 90; Glucose 77 mg/dL (70-105); Potassium 3.5 mmol/L (3.5-5.1)
[2019-02-17 07:05] LABS: Sodium 119 mmol/L (136-145)
[2019-02-17] MEDS: Enoxaparin Sodium 40 MG/0.4 ML SYRINGE SC SCH (08:05)
[2019-02-17] MEDS: Gabapentin 300 MG CAP PO SCH ×3 (08:06→21:11)
[2019-02-17] MEDS: levETIRAcetam 500 MG TAB PO SCH ×2 (08:06→21:11)
[2019-02-17] MEDS: Saccharomyces boulardii 250 MG CAP PO SCH (08:06)
[2019-02-17] MEDS: Lubiprostone 24 MCG CAP PO SCH ×2 (08:06→16:34)
[2019-02-17] MEDS: sulfaSALAzine 500 MG TAB PO SCH ×3 (08:06→21:11)
[2019-02-17] MEDS: OXcarbazepine 300 MG TAB PO SCH ×2 (08:07→21:12)
--- NOTE | 2019-02-17 10:26 | PDOC.PN ---
- Subjective Encounter Start Date: 02/17/19 Encounter Start Time: 08:20 Patient seen and examined. No new complaints. No overnight events pt is asymptomatic even with sodium 119 - Objective Resuscitation Status - Order Detail: 02/15/19 23:37 Resuscitation Status Routine Resuscitation Status: FULL: Full Resuscitation MAR Reviewed: Yes Vital Signs & Weight: Vital Signs (12 hours) Temp Pulse Resp BP Pulse Ox 02/17/19 08:00 97 02/17/19 07:36 97.7 F 79 18 99/59 L 97 Weight Weight 130 lb 8 oz I&O: 02/16/19 02/17/19 02/18/19 06:59 06:59 06:59 Intake Total 3230 360 Output Total 1100 Balance 2130 360 Result Diagrams: 02/17/19 05:34 02/17/19 05:34 Additional Labs: Accuchecks 02/17/19 05:56 POC Glucose 93 Phys Exam - Physical Examination Constitutional: NAD HEENT: PERRLA, moist MMs, sclera anicteric Neck: no JVD, supple Respiratory: no wheezing, no rales, no rhonchi Cardiovascular: RRR, no significant murmur, no rub Gastrointestinal: soft, non-tender, no distention, positive bowel sounds Musculoskeletal: no edema, pulses present Neurological: non-focal, normal sensation, moves all 4 limbs Lymphatic: no nodes Psychiatric: normal affect, A&O x 3 Skin: no rash, normal turgor Dx/Plan (1) Cellulitis of great toe, left Code(s): L03.032 - CELLULITIS OF LEFT TOE Status: Acute (2) Hyponatremia Code(s): E87.1 - HYPO-OSMOLALITY AND HYPONATREMIA Status: Acute (3) Leucopenia Code(s): D72.819 - DECREASED WHITE BLOOD CELL COUNT, UNSPECIFIED Status: Acute (4) Sepsis Code(s): A41.9 - SEPSIS, UNSPECIFIED ORGANISM Status: Resolved (5) Anemia, normocytic normochromic Code(s): D64.9 - ANEMIA, UNSPECIFIED Status: Chronic (6) Asthma Code(s): J45.909 - UNSPECIFIED ASTHMA, UNCOMPLICATED Status: Chronic (7) Crohn's disease Code(s): K50.90 - CROHN'S DISEASE, UNSPECIFIED, WITHOUT COMPLICATIONS Status: Chronic (8) GERD (gastroesophageal reflux disease) Code(s): K21.9 - GASTRO-ESOPHAGEAL REFLUX DISEASE WITHOUT ESOPHAGITIS Status: Chronic Comment: (9) Nephrolithiasis Status: Chronic Comment: (10) Neuropathy Code(s): G62.9 - POLYNEUROPATHY, UNSPECIFIED Status: Chronic (11) Protein C deficiency Code(s): D68.59 - OTHER PRIMARY THROMBOPHILIA Status: Chronic Comment: (12) Seizure disorder Code(s): G40.909 - EPILEPSY, UNSP, NOT INTRACTABLE, WITHOUT STATUS EPILEPTICUS Status: Chronic - Plan cont current plan of care, continue antibiotics * based on hyponatremia work up, suspecting polydipsia as a cause of hyponatremia * will initiate fluid restriction * consult nephrology * pt will follow up with podiatry as an outpt basis * medication reviewed as below * symptomatic treatment * monitor sodium. Review of Systems - Review of Systems ENT: negative: Ear Pain, Ear Discharge, Nose Pain, Nose Discharge, Nose Congestion, Mouth Pain, Mouth Swelling, Throat Pain, Throat Swelling, Other Respiratory: negative: Cough, Dry, Shortness of Breath, Hemoptysis, SOB with Excertion, Pleuritic Pain, Sputum, Wheezing Cardiovascular: negative: chest pain, palpitations, orthopnea, paroxysmal nocturnal dyspnea, edema, light headedness, other Gastrointestinal: negative: Nausea, Vomiting, Abdominal Pain, Diarrhea, Constipation, Melena, Hematochezia, Other Genitourinary: negative: Dysuria, Frequency, Incontinence, Hematuria, Retention , Other Musculoskeletal: negative: Neck Pain, Shoulder Pain, Arm Pain, Back Pain, Hand Pain, Leg Pain, Foot Pain, Other Skin: negative: Rash, Lesions, Manjeet, Bruising, Other - Medications/Allergies Allergies/Adverse Reactions: Allergies Allergy/AdvReac Type Severity Reaction Status Date / Time orange juice [[place] Juice] Allergy Intermediate Hives Verified 12/17/13 00:01 promethazine HCl Allergy Mild Anxiety Verified 02/15/19 20:22 [From Phenergan] acetaminophen [From [place]] Allergy Verified 02/15/19 20:22 chocolate flavor Allergy Hives Verified 02/15/19 20:22 ciprofloxacin [From Cipro] Allergy Verified 02/15/19 20:22 hydrocodone Allergy Verified 02/15/19 20:22 metoclopramide [From Reglan] Allergy Verified 02/15/19 20:22 codeine AdvReac Intermediate Nausea Verified 02/15/19 20:22 Medications: Current Medications Albuterol Sulfate (Proventil Hfa) 2 puff INH Q6H PRN PRN Reason: SOB &/or Wheezing Amitriptyline HCl (Elavil) 100 mg PO 0200 [facility] Last Admin: 02/17/19 02:43 Dose: 100 mg Artificial Tears (Tears Naturale) 2 drop EA EYE PRN PRN PRN Reason: Dry Eyes Bisacodyl (Dulcolax) 10 mg [place] DAILYPRN PRN PRN Reason: Constipation Bisacodyl (Dulcolax) 10 mg PO DAILYPRN PRN PRN Reason: Constipation Dicyclomine HCl (Bentyl) 10 mg PO TID PRN PRN Reason: GI Cramping Last Admin: 02/17/19 00:31 Dose: 10 mg Enoxaparin Sodium (Lovenox) 40 mg SC 0900 [facility] Last Admin: 02/17/19 08:05 Dose: 40 mg Gabapentin (Neurontin) 300 mg PO TID [facility] Last Admin: 02/17/19 08:06 Dose: 300 mg Glucagon (Glucagon) 1 mg IM PRN PRN PRN Reason: Hypoglycemia Guaifenesin (Robitussin Sf) 200 mg PO Q4H PRN PRN Reason: Cough Hydralazine HCl (Apresoline) 10 mg SLOW IVP Q4H PRN PRN Reason: SBP > 180 and HR < 70 Ceftriaxone Sodium 1 gm/ (Sodium Chloride) 100 mls @ 200 mls/hr IVPB Q24HR [facility] Last Admin: 02/17/19 00:26 Dose: 100 mls Ketorolac Tromethamine (Toradol) 15 mg IVP Q6H PRN PRN Reason: Pain Stop: 02/21/19 00:27 Last Admin: 02/16/19 20:16 Dose: 15 mg Levetiracetam (Keppra) 1,500 mg PO BID [facility] Last Admin: 02/17/19 08:06 Dose: 1,500 mg Loperamide HCl (Imodium) 2 mg PO PRN PRN PRN Reason: Diarrhea/Loose Stools Last Admin: 02/17/19 00:31 Dose: 2 mg Loratadine (Claritin) 10 mg PO DAILYPRN PRN PRN Reason: Sinus Symptoms Lubiprostone (Amitiza) 24 mcg PO BID-WM [facility] Last Admin: 02/17/19 08:06 Dose: 24 mcg Mineral Oil/White Petrolatum (Eucerin Cream) 0 gm TOP BIDPRN PRN PRN Reason: Dry Skin Mometasone Furoate/Formoterol Fumar (Dulera 200 Mcg/5 Mcg Inhaler) 2 puff INH BID-RT [facility] Last Admin: 02/16/19 18:46 Dose: 2 puff Ondansetron HCl (Zofran Odt) 4 mg PO Q6H PRN PRN Reason: Nausea/Vomiting Ondansetron HCl (Zofran) 4 mg IVP Q6H PRN PRN Reason: Nausea/Vomiting Last Admin: 02/16/19 13:23 Dose: 4 mg Oxcarbazepine (Trileptal) 300 mg PO BID [facility] Last Admin: 02/17/19 08:07 Dose: 300 mg Pantoprazole Sodium (Protonix) 40 mg PO DAILY [facility] Last Admin: 02/17/19 08:06 Dose: 40 mg Saccharomyces Boulardii (Florastor) 250 mg PO DAILY [facility] Last Admin: 02/17/19 08:06 Dose: 250 mg Senna/Docusate Sodium (Senokot S) 2 tab PO BID PRN PRN Reason: Constipation Sodium Chloride (Flush - Normal Saline) 10 ml IVF Q12HR [facility] Last Admin: 02/17/19 08:07 Dose: 10 ml Sodium Chloride (Flush - Normal Saline) 10 ml IVF PRN PRN PRN Reason: Saline Flush Sodium Chloride ([place] Nasal [place] 0.65%) 0 ml EA NARE QIDPRN PRN PRN Reason: Nasal Congestion Sulfasalazine (Azulfidine) 1,000 mg PO TID [facility] Last Admin: 02/17/19 08:06 Dose: 1,000 mg Throat Lozenges (Cepastat Lozenges) 1 lolis PO Q2H PRN PRN Reason: Sore Throat Zolpidem Tartrate (Ambien) 5 mg PO HSPRN PRN PRN Reason: Insomnia
[2019-02-17] MEDS: Mometasone/Formoterol 120 PUFF INHALER INH SCH ×2 (11:26→19:22)
[2019-02-17 12:51] LABS: Creatinine, Urine 21.04 mg/dL (63-166)
--- NOTE | 2019-02-17 21:19 | CON ---
DATE OF CONSULTATION: CONSULTING PHYSICIAN: Aidan Chicas MD REASON FOR CONSULTATION: Hyponatremia. IMPRESSION: Hyponatremia, query cause going by urinary chemistry. These look like hypo-osmolar hyponatremia consistent with either osmolar intake or polydipsia. However, the clinical history seemed not to be much in the picture. PLAN: As a result of the above mentioned confusion, we will repeat the urine chemistry tomorrow. However, to err on the side of caution, we will place this patient on fluid restriction of about 1.5 L and increase the meat intake in this patient and follow the sodium level. 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 The patient noted with a sodium level of 125, however, over the course of hospitalization, it came back to 119. The patient denies drinking a lot of water. Denies any poor appetite. As a result of these findings, decision has been taken to involve Renal in the management of this case. The patient seems to be completely asymptomatic as far as it goes to the hyponatremia. PAST MEDICAL HISTORY: Significant for seizure disorder, protein C deficiency, Crohn disease, severe right-sided weakness, reflux disease, and neuropathy. MEDICATIONS: Reviewed and as documented on [facility]. ALLERGIES: TO CIPRO, CODEINE, NORCO, REGLAN, PHENERGAN, ORANGES, AND CHOCOLATE. FAMILY HISTORY: Nonsignificant related to present illness. SOCIAL HISTORY: Lives with parents. No alcohol. No tobacco. No illicit drug use. REVIEW OF SYSTEMS: As documented in the body of the history. All other systems were reviewed and found not to be significantly related to presenting illness. PHYSICAL EXAMINATION: GENERAL: The patient was found not to be in any obvious distress, noted with the following vital signs. VITAL SIGNS: Afebrile, temperature 98.7, pulse 77, respiratory rate of 18, blood pressure 99/59. HEENT: Unremarkable. CARDIOVASCULAR SYSTEM: First and second heart sounds were heard. RESPIRATORY SYSTEM: Clear to auscultation. DIGESTIVE SYSTEM: Revealed a benign abdomen with positive bowel sounds. EXTREMITIES: No peripheral edema. SKIN: No new gross rash. LYMPHATICS: No peripheral lymphadenopathy. SUMMARY: A 38-year-old gentleman who presented here with toe pain, now experiencing worsening hyponatremia. Thank you for this consultation. We will follow with you. Spike ID: [id number]
[2019-02-17] MEDS: Ketorolac Tromethamine 30 MG/ML VIAL IVP PRN (23:22)
[2019-02-18] MEDS: Amitriptyline HCl 100 MG TAB PO SCH (02:36)
[2019-02-18] MEDS: Mometasone/Formoterol 120 PUFF INHALER INH SCH ×2 (06:50→18:57)
[2019-02-18 08:02] LABS: Anion Gap 12 mmol/L (10-20); BUN (Urea Nitrogen) 9 mg/dL (8.9-20.6); Calc. Creatinine Clearance 89 mL/min (70-130); Calcium 9.4 mg/dL (7.8-10.44); Carbon Dioxide 25 mmol/L (22-29); Chloride 91 mmol/L (98-107); Estimated GFR-MDRD 89; Glucose 79 mg/dL (70-105); Potassium 3.9 mmol/L (3.5-5.1); Sodium 124 mmol/L (136-145)
[2019-02-18] MEDS: Gabapentin 300 MG CAP PO SCH ×3 (08:41→20:06)
[2019-02-18] MEDS: Saccharomyces boulardii 250 MG CAP PO SCH (08:41)
[2019-02-18] MEDS: sulfaSALAzine 500 MG TAB PO SCH ×3 (08:41→20:06)
[2019-02-18] MEDS: levETIRAcetam 500 MG TAB PO SCH ×2 (08:41→20:06)
[2019-02-18] MEDS: Lubiprostone 24 MCG CAP PO SCH ×2 (08:41→17:04)
[2019-02-18] MEDS: OXcarbazepine 300 MG TAB PO SCH ×2 (08:41→20:06)
[2019-02-18] MEDS: Enoxaparin Sodium 40 MG/0.4 ML SYRINGE SC SCH (08:42)
--- NOTE | 2019-02-18 10:58 | PDOC.PN ---
- Subjective Encounter Start Date: 02/18/19 Encounter Start Time: 08:50 Patient seen and examined. No new complaints. No overnight events - Objective Resuscitation Status - Order Detail: 02/15/19 23:37 Resuscitation Status Routine Resuscitation Status: FULL: Full Resuscitation MAR Reviewed: Yes Vital Signs & Weight: Vital Signs (12 hours) Temp Pulse Resp BP Pulse Ox 02/18/19 08:06 97.9 F 68 18 106/68 98 02/18/19 04:26 97.9 F 88 16 125/68 96 02/18/19 00:00 98.6 F 87 16 105/65 96 Weight Weight 130 lb 8 oz I&O: 02/17/19 02/18/19 02/19/19 06:59 06:59 06:59 Intake Total 3230 3120 Output Total 1100 Balance 2130 3120 Result Diagrams: 02/17/19 05:34 02/18/19 07:33 Phys Exam - Physical Examination Constitutional: NAD HEENT: PERRLA, moist MMs, sclera anicteric Neck: no JVD, supple Respiratory: no wheezing, no rales, no rhonchi Cardiovascular: RRR, no significant murmur, no rub Gastrointestinal: soft, non-tender, no distention, positive bowel sounds Musculoskeletal: no edema, pulses present Neurological: non-focal, normal sensation, moves all 4 limbs Lymphatic: no nodes Psychiatric: normal affect, A&O x 3 Skin: no rash, normal turgor Dx/Plan (1) Cellulitis of great toe, left Code(s): L03.032 - CELLULITIS OF LEFT TOE Status: Acute (2) Hyponatremia Code(s): E87.1 - HYPO-OSMOLALITY AND HYPONATREMIA Status: Acute (3) Leucopenia Code(s): D72.819 - DECREASED WHITE BLOOD CELL COUNT, UNSPECIFIED Status: Acute (4) Sepsis Code(s): A41.9 - SEPSIS, UNSPECIFIED ORGANISM Status: Resolved (5) Anemia, normocytic normochromic Code(s): D64.9 - ANEMIA, UNSPECIFIED Status: Chronic (6) Asthma Code(s): J45.909 - UNSPECIFIED ASTHMA, UNCOMPLICATED Status: Chronic (7) Crohn's disease Code(s): K50.90 - CROHN'S DISEASE, UNSPECIFIED, WITHOUT COMPLICATIONS Status: Chronic (8) GERD (gastroesophageal reflux disease) Code(s): K21.9 - GASTRO-ESOPHAGEAL REFLUX DISEASE WITHOUT ESOPHAGITIS Status: Chronic Comment: (9) Nephrolithiasis Status: Chronic Comment: (10) Neuropathy Code(s): G62.9 - POLYNEUROPATHY, UNSPECIFIED Status: Chronic (11) Protein C deficiency Code(s): D68.59 - OTHER PRIMARY THROMBOPHILIA Status: Chronic Comment: (12) Seizure disorder Code(s): G40.909 - EPILEPSY, UNSP, NOT INTRACTABLE, WITHOUT STATUS EPILEPTICUS Status: Chronic - Plan cont current plan of care * sodium improving * medication reviewed as below * symptomatic treatment * will repeat sodium tomorrow, if better then will consider discharge. Review of Systems - Review of Systems ENT: negative: Ear Pain, Ear Discharge, Nose Pain, Nose Discharge, Nose Congestion, Mouth Pain, Mouth Swelling, Throat Pain, Throat Swelling, Other Respiratory: negative: Cough, Dry, Shortness of Breath, Hemoptysis, SOB with Excertion, Pleuritic Pain, Sputum, Wheezing Cardiovascular: negative: chest pain, palpitations, orthopnea, paroxysmal nocturnal dyspnea, edema, light headedness, other Gastrointestinal: negative: Nausea, Vomiting, Abdominal Pain, Diarrhea, Constipation, Melena, Hematochezia, Other Genitourinary: negative: Dysuria, Frequency, Incontinence, Hematuria, Retention , Other Musculoskeletal: negative: Neck Pain, Shoulder Pain, Arm Pain, Back Pain, Hand Pain, Leg Pain, Foot Pain, Other Skin: negative: Rash, Lesions, Manjeet, Bruising, Other - Medications/Allergies Allergies/Adverse Reactions: Allergies Allergy/AdvReac Type Severity Reaction Status Date / Time orange juice [[place] Juice] Allergy Intermediate Hives Verified 12/17/13 00:01 promethazine HCl Allergy Mild Anxiety Verified 02/15/19 20:22 [From Phenergan] acetaminophen [From [place]] Allergy Verified 02/15/19 20:22 chocolate flavor Allergy Hives Verified 02/15/19 20:22 ciprofloxacin [From Cipro] Allergy Verified 02/15/19 20:22 hydrocodone Allergy Verified 02/15/19 20:22 metoclopramide [From Reglan] Allergy Verified 02/15/19 20:22 codeine AdvReac Intermediate Nausea Verified 02/15/19 20:22 Medications: Current Medications Albuterol Sulfate (Proventil Hfa) 2 puff INH Q6H PRN PRN Reason: SOB &/or Wheezing Amitriptyline HCl (Elavil) 100 mg PO 0200 [facility] Last Admin: 02/18/19 02:36 Dose: 100 mg Artificial Tears (Tears Naturale) 2 drop EA EYE PRN PRN PRN Reason: Dry Eyes Bisacodyl (Dulcolax) 10 mg [place] DAILYPRN PRN PRN Reason: Constipation Bisacodyl (Dulcolax) 10 mg PO DAILYPRN PRN PRN Reason: Constipation Dicyclomine HCl (Bentyl) 10 mg PO TID PRN PRN Reason: GI Cramping Last Admin: 02/17/19 00:31 Dose: 10 mg Enoxaparin Sodium (Lovenox) 40 mg SC 0900 [facility] Last Admin: 02/18/19 08:42 Dose: 40 mg Gabapentin (Neurontin) 300 mg PO TID [facility] Last Admin: 02/18/19 08:41 Dose: 300 mg Glucagon (Glucagon) 1 mg IM PRN PRN PRN Reason: Hypoglycemia Guaifenesin (Robitussin Sf) 200 mg PO Q4H PRN PRN Reason: Cough Hydralazine HCl (Apresoline) 10 mg SLOW IVP Q4H PRN PRN Reason: SBP > 180 and HR < 70 Ceftriaxone Sodium 1 gm/ (Sodium Chloride) 100 mls @ 200 mls/hr IVPB Q24HR [facility] Last Admin: 02/17/19 23:25 Dose: 100 mls Ketorolac Tromethamine (Toradol) 15 mg IVP Q6H PRN PRN Reason: Pain Stop: 02/21/19 00:27 Last Admin: 02/17/19 23:22 Dose: 15 mg Levetiracetam (Keppra) 1,500 mg PO BID [facility] Last Admin: 02/18/19 08:41 Dose: 1,500 mg Loperamide HCl (Imodium) 2 mg PO PRN PRN PRN Reason: Diarrhea/Loose Stools Last Admin: 02/17/19 00:31 Dose: 2 mg Loratadine (Claritin) 10 mg PO DAILYPRN PRN PRN Reason: Sinus Symptoms Lubiprostone (Amitiza) 24 mcg PO BID[facility] Last Admin: 02/18/19 08:41 Dose: 24 mcg Mineral Oil/White Petrolatum (Eucerin Cream) 0 gm TOP BIDPRN PRN PRN Reason: Dry Skin Mometasone Furoate/Formoterol Fumar (Dulera 200 Mcg/5 Mcg Inhaler) 2 puff INH BID-RT [facility] Last Admin: 02/18/19 06:50 Dose: 2 puff Ondansetron HCl (Zofran Odt) 4 mg PO Q6H PRN PRN Reason: Nausea/Vomiting Last Admin: 02/17/19 23:23 Dose: 4 mg Ondansetron HCl (Zofran) 4 mg IVP Q6H PRN PRN Reason: Nausea/Vomiting Last Admin: 02/16/19 13:23 Dose: 4 mg Oxcarbazepine (Trileptal) 300 mg PO BID [facility] Last Admin: 02/18/19 08:41 Dose: 300 mg Pantoprazole Sodium (Protonix) 40 mg PO DAILY [facility] Last Admin: 02/18/19 08:41 Dose: 40 mg Saccharomyces Boulardii (Florastor) 250 mg PO DAILY [facility] Last Admin: 02/18/19 08:41 Dose: 250 mg Senna/Docusate Sodium (Senokot S) 2 tab PO BID PRN PRN Reason: Constipation Sodium Chloride (Flush - Normal Saline) 10 ml IVF Q12HR [facility] Last Admin: 02/18/19 08:42 Dose: 10 ml Sodium Chloride (Flush - Normal Saline) 10 ml IVF PRN PRN PRN Reason: Saline Flush Sodium Chloride (Uncertain Nasal [place] 0.65%) 0 ml EA NARE QIDPRN PRN PRN Reason: Nasal Congestion Sulfasalazine (Azulfidine) 1,000 mg PO TID [facility] Last Admin: 02/18/19 08:41 Dose: 1,000 mg Throat Lozenges (Cepastat Lozenges) 1 lolis PO Q2H PRN PRN Reason: Sore Throat Zolpidem Tartrate (Ambien) 5 mg PO HSPRN PRN PRN Reason: Insomnia
[2019-02-18] MEDS ORDERED: Midazolam HCl 2 mg/2 ml Vial ONE (11:54)
[2019-02-18] MEDS: Ketorolac Tromethamine 30 MG/ML VIAL IVP PRN (17:02)
--- NOTE | 2019-02-18 21:32 | PRG ---
DATE OF SERVICE: 02/18/2019 SUBJECTIVE: The patient is seen and examined with no new complaints. OBJECTIVE: HEENT: Unremarkable. Hemodynamically stable. VITAL SIGNS: Blood pressure 106/68, pulse 68, respiratory rate of 18, O2 saturation 98%. CARDIOVASCULAR: First and second heart sounds were heard. RESPIRATORY: Clear to auscultation. DIGESTIVE: Revealed a benign abdomen. EXTREMITIES: No peripheral edema. SKIN: No new gross rash. LYMPHATICS: No peripheral lymphadenopathy. LABORATORY INVESTIGATION: Showed a sodium of 124. IMPRESSION: Hyponatremia, likely in the context of poor p.o. osmolar intake or excessive free water intake. PLAN: 1. We will continue to restrict free water intake. 2. Continue to increase protein intake in the way of animal meat. 3. Monitor the sodium level. 4. Further management will be dependent on the clinical course. Job ID: [id number]
[2019-02-19] MEDS: cefTRIAXone\\ROCEPHIN 1 GM in Sodium Chloride 0.9% 100 ML IVPB SCH (00:16)
[2019-02-19] MEDS: Amitriptyline HCl 100 MG TAB PO SCH (01:14)
[2019-02-19 04:42] LABS: Anion Gap 12 mmol/L (10-20); BUN (Urea Nitrogen) 13 mg/dL (8.9-20.6); Calc. Creatinine Clearance 83 mL/min (70-130); Calcium 9.1 mg/dL (7.8-10.44); Carbon Dioxide 24 mmol/L (22-29); Chloride 94 mmol/L (98-107); Estimated GFR-MDRD 82; Glucose 85 mg/dL (70-105); Potassium 3.8 mmol/L (3.5-5.1); Sodium 126 mmol/L (136-145)
[2019-02-19] MEDS: Mometasone/Formoterol 120 PUFF INHALER INH SCH (06:48)
[2019-02-19 07:22] VITALS: BP 126/73; TEMP 97.7
[2019-02-19] MEDS: Gabapentin 300 MG CAP PO SCH (08:05)
[2019-02-19] MEDS: Saccharomyces boulardii 250 MG CAP PO SCH (08:05)
[2019-02-19] MEDS: OXcarbazepine 300 MG TAB PO SCH (08:05)
[2019-02-19] MEDS: levETIRAcetam 500 MG TAB PO SCH (08:05)
[2019-02-19] MEDS: Lubiprostone 24 MCG CAP PO SCH (08:05)
[2019-02-19] MEDS: sulfaSALAzine 500 MG TAB PO SCH (08:05)
[2019-02-19] MEDS: Enoxaparin Sodium 40 MG/0.4 ML SYRINGE SC SCH (08:06)
--- NOTE | 2019-02-19 11:16 | DIS ---
DATE OF ADMISSION: 02/15/2019 DATE OF DISCHARGE: 02/19/2019 PRIMARY CARE PHYSICIAN: Kurtis Castañeda MD DISCHARGE DISPOSITION: Home. PRIMARY DISCHARGE DIAGNOSES: 1. Left great toe cellulitis, improved. 2. Hyponatremia. 3. Leukopenia. 4. Sepsis, resolved. SECONDARY DISCHARGE DIAGNOSES: Seizure disorder, protein-C deficiency, neuropathy, nephrolithiasis, gastroesophageal reflux disease, Crohn disease, asthma, and normocytic normochromic anemia. PRIMARY PROCEDURE/OPERATION: None. RADIOLOGICAL INVESTIGATION: Foot x-ray normal. Chest x-ray normal. SIGNIFICANT LABORATORY DATA: WBC 3.8, hemoglobin 11.0, and platelet 159. Sodium 126, creatinine 1.02, and calcium 9.1. Cortisol 7.2. TSH 2.18. Albumin 4.4. Urinalysis normal. Urine osmolality 187 and urine sodium 23. DISCHARGE MEDICATION: The patient will continue all his previous medication. No new prescription given upon discharge. 1. Ventolin inhaler 2 puffs q.6 hourly p.r.n. 2. Amitriptyline 100 mg daily. 3. Keflex 500 mg p.o. b.i.d. The patient is advised to finish complete course, whatever he has left over from home. 4. Advair 1 inhalation b.i.d. 5. Gabapentin 300 mg p.o. t.i.d. 6. Keppra 1500 mg b.i.d. 7. Amitiza 24 mcg p.o. b.i.d. 8. Trileptal 300 mg p.o. b.i.d. 9. Protonix 40 mg p.o. daily. 10. Sulfasalazine 1000 mg p.o. t.i.d. 11. Bentyl 10 mg t.i.d. p.r.n. CONTRAINDICATION: None. CODE STATUS: Full code. INPATIENT DATA CONTROL CLERK: Dr. Bermudez was consulted for hyponatremia. Dr. Ambrose Suarez was consulted for toe cellulitis. TEST RESULT PENDING ON DISCHARGE: None. ALLERGIES: PROMETHAZINE AND ACETAMINOPHEN. DISCHARGE PLAN: Posthospital, the patient is instructed to follow up with Ambrose Suarez as instructed. The patient will follow up with Dr. Bermudez for hyponatremia and primary care physician. The patient is also instructed to follow up with shipyard supervisor, Dr. Jimenez, and the patient is also advised to follow up with Hematology as an outpatient basis. HOSPITAL COURSE: This is a 38-year-old male with above-mentioned medical problem, who was admitted by Dr. La Villanueva. Please see her H and P for further details. This patient was having toe problem on admission. He was having left great toe cellulitis with granuloma formation on top of nail. The patient was taking Keflex and he responded to therapy, but the patient was admitted in the hospital and he was given Rocephin while in hospital, and on discharge, we advised him to finish Keflex course. Job Counselor was also consulted and they recommended that this patient will need minor procedure as an outpatient basis for granuloma over the toe. The patient was also having hyponatremia, and based on hyponatremia evaluation, we suspected from polydipsia. This patient is given education to reduce his oral water intake. He needs fluid restriction, and with fluid restriction, his sodium improved to 126, it went low to 119 while in hospital, but the patient was completely asymptomatic and Nephrology was consulted while in hospital. This patient will need outpatient followup with them as an outpatient basis to monitor sodium. I have spoken to the patient's mother about plan of care and advised about all followup. This patient also has leukopenia, but it is improving, and that is why we did not pursue any more investigation while in hospital, but he will may need monitoring as an outpatient basis and Hematology followup. I have seen and examined the patient at bedside today. I have gone over through fluid-water restriction at home and medication upon discharge. His examination is unchanged and completely normal. Overall, the patient is medically stable for discharge today. Job ID: [id number]
--- NOTE | 2019-02-19 12:36 | PDOC.PN ---
- Subjective Encounter Start Date: 02/19/19 Encounter Start Time: 10:20 Patient seen and examined. No new complaints. No overnight events - Objective Resuscitation Status - Order Detail: 02/15/19 23:37 Resuscitation Status Routine Resuscitation Status: FULL: Full Resuscitation MAR Reviewed: Yes Vital Signs & Weight: Vital Signs (12 hours) Temp Pulse Resp BP Pulse Ox 02/19/19 08:00 97 02/19/19 07:20 97.7 F 72 20 126/73 97 Weight Weight 130 lb 8 oz I&O: 02/18/19 02/19/19 02/20/19 06:59 06:59 06:59 Intake Total 3120 710 Output Total 450 Balance 3120 260 Result Diagrams: 02/17/19 05:34 02/19/19 04:08 Phys Exam - Physical Examination Constitutional: NAD HEENT: PERRLA, moist MMs, sclera anicteric Neck: no JVD, supple Respiratory: no wheezing, no rales, no rhonchi Cardiovascular: RRR, no significant murmur, no rub Gastrointestinal: soft, non-tender, no distention, positive bowel sounds Musculoskeletal: no edema, pulses present Neurological: non-focal, normal sensation, moves all 4 limbs Lymphatic: no nodes Psychiatric: normal affect, A&O x 3 Skin: no rash, normal turgor Dx/Plan (1) Cellulitis of great toe, left Code(s): L03.032 - CELLULITIS OF LEFT TOE Status: Acute (2) Hyponatremia Code(s): E87.1 - HYPO-OSMOLALITY AND HYPONATREMIA Status: Acute (3) Leucopenia Code(s): D72.819 - DECREASED WHITE BLOOD CELL COUNT, UNSPECIFIED Status: Acute (4) Sepsis Code(s): A41.9 - SEPSIS, UNSPECIFIED ORGANISM Status: Resolved (5) Anemia, normocytic normochromic Code(s): D64.9 - ANEMIA, UNSPECIFIED Status: Chronic (6) Asthma Code(s): J45.909 - UNSPECIFIED ASTHMA, UNCOMPLICATED Status: Chronic (7) Crohn's disease Code(s): K50.90 - CROHN'S DISEASE, UNSPECIFIED, WITHOUT COMPLICATIONS Status: Chronic (8) GERD (gastroesophageal reflux disease) Code(s): K21.9 - GASTRO-ESOPHAGEAL REFLUX DISEASE WITHOUT ESOPHAGITIS Status: Chronic Comment: (9) Nephrolithiasis Status: Chronic Comment: (10) Neuropathy Code(s): G62.9 - POLYNEUROPATHY, UNSPECIFIED Status: Chronic (11) Protein C deficiency Code(s): D68.59 - OTHER PRIMARY THROMBOPHILIA Status: Chronic Comment: (12) Seizure disorder Code(s): G40.909 - EPILEPSY, UNSP, NOT INTRACTABLE, WITHOUT STATUS EPILEPTICUS Status: Chronic - Plan cont current plan of care, plan discussed w/ family * medication reviewed as below * symptomatic treatment * see discharge lizet. Review of Systems - Review of Systems ENT: negative: Ear Pain, Ear Discharge, Nose Pain, Nose Discharge, Nose Congestion, Mouth Pain, Mouth Swelling, Throat Pain, Throat Swelling, Other Respiratory: negative: Cough, Dry, Shortness of Breath, Hemoptysis, SOB with Excertion, Pleuritic Pain, Sputum, Wheezing Cardiovascular: negative: chest pain, palpitations, orthopnea, paroxysmal nocturnal dyspnea, edema, light headedness, other Gastrointestinal: negative: Nausea, Vomiting, Abdominal Pain, Diarrhea, Constipation, Melena, Hematochezia, Other Genitourinary: negative: Dysuria, Frequency, Incontinence, Hematuria, Retention , Other Musculoskeletal: negative: Neck Pain, Shoulder Pain, Arm Pain, Back Pain, Hand Pain, Leg Pain, Foot Pain, Other Skin: negative: Rash, Lesions, Manjeet, Bruising, Other - Medications/Allergies Allergies/Adverse Reactions: Allergies Allergy/AdvReac Type Severity Reaction Status Date / Time orange juice [[place] Juice] Allergy Intermediate Hives Verified 12/17/13 00:01 promethazine HCl Allergy Mild Anxiety Verified 02/15/19 20:22 [From Phenergan] acetaminophen [From [place]] Allergy Verified 02/15/19 20:22 chocolate flavor Allergy Hives Verified 02/15/19 20:22 ciprofloxacin [From Cipro] Allergy Verified 02/15/19 20:22 hydrocodone Allergy Verified 02/15/19 20:22 metoclopramide [From Reglan] Allergy Verified 02/15/19 20:22 codeine AdvReac Intermediate Nausea Verified 02/15/19 20:22 Medications: Current Medications Albuterol Sulfate (Proventil Hfa) 2 puff INH Q6H PRN PRN Reason: SOB &/or Wheezing Amitriptyline HCl (Elavil) 100 mg PO 0200 [facility]O Last Admin: 05/21/19 01:14 Dose: 100 mg Artificial Tears (Tears Naturale) 2 drop EA EYE PRN PRN PRN Reason: Dry Eyes Bisacodyl (Dulcolax) 10 mg [place] DAILYPRN PRN PRN Reason: Constipation Bisacodyl (Dulcolax) 10 mg PO DAILYPRN PRN PRN Reason: Constipation Dicyclomine HCl (Bentyl) 10 mg PO TID PRN PRN Reason: GI Cramping Last Admin: 02/17/19 00:31 Dose: 10 mg Enoxaparin Sodium (Lovenox) 40 mg SC 0900 [facility] Last Admin: 02/19/19 08:06 Dose: 40 mg Gabapentin (Neurontin) 300 mg PO TID [facility] Last Admin: 02/19/19 08:05 Dose: 300 mg Glucagon (Glucagon) 1 mg IM PRN PRN PRN Reason: Hypoglycemia Guaifenesin (Robitussin Sf) 200 mg PO Q4H PRN PRN Reason: Cough Hydralazine HCl (Apresoline) 10 mg SLOW IVP Q4H PRN PRN Reason: SBP > 180 and HR < 70 Ceftriaxone Sodium 1 gm/ (Sodium Chloride) 100 mls @ 200 mls/hr IVPB Q24HR [facility] Last Admin: 02/19/19 00:16 Dose: 100 mls Ketorolac Tromethamine (Toradol) 15 mg IVP Q6H PRN PRN Reason: Pain Stop: 02/21/19 00:27 Last Admin: 02/18/19 17:02 Dose: 15 mg Levetiracetam (Keppra) 1,500 mg PO BID [facility] Last Admin: 02/19/19 08:05 Dose: 1,500 mg Loperamide HCl (Imodium) 2 mg PO PRN PRN PRN Reason: Diarrhea/Loose Stools Last Admin: 02/17/19 00:31 Dose: 2 mg Loratadine (Claritin) 10 mg PO DAILYPRN PRN PRN Reason: Sinus Symptoms Lubiprostone [facility]iza[facility] Last Admin: 02/19/19 08:05 Dose: 24 mcg Mineral Oil/White Petrolatum (Eucerin Cream) 0 gm TOP BIDPRN PRN PRN Reason: Dry Skin Mometasone Furoate/Formoterol Fumar (Dulera 200 Mcg/5 Mcg Inhaler) 2 puff INH BID-RT [facility] Last Admin: 02/19/19 06:48 Dose: 2 puff Ondansetron HCl (Zofran Odt) 4 mg PO Q6H PRN PRN Reason: Nausea/Vomiting Last Admin: 02/17/19 23:23 Dose: 4 mg Ondansetron HCl (Zofran) 4 mg IVP Q6H PRN PRN Reason: Nausea/Vomiting Last Admin: 02/16/19 13:23 Dose: 4 mg Oxcarbazepine (Trileptal) 300 mg PO BID [facility] Last Admin: 02/19/19 08:05 Dose: 300 mg Pantoprazole Sodium (Protonix) 40 mg PO DAILY [facility] Last Admin: 02/19/19 08:05 Dose: 40 mg Saccharomyces Boulardii (Florastor) 250 mg PO DAILY [facility] Last Admin: 02/19/19 08:05 Dose: 250 mg Senna/Docusate Sodium (Senokot S) 2 tab PO BID PRN PRN Reason: Constipation Sodium Chloride (Flush - Normal Saline) 10 ml IVF Q12HR [facility] Last Admin: 02/19/19 08:11 Dose: 10 ml Sodium Chloride (Flush - Normal Saline) 10 ml IVF PRN PRN PRN Reason: Saline Flush Sodium Chloride ([place] Nasal [place] 0.65%) 0 ml EA NARE QIDPRN PRN PRN Reason: Nasal Congestion Sulfasalazine (Azulfidine) 1,000 mg PO TID [facility] Last Admin: 02/19/19 08:05 Dose: 1,000 mg Throat Lozenges (Cepastat Lozenges) 1 lolis PO Q2H PRN PRN Reason: Sore Throat Zolpidem Tartrate (Ambien) 5 mg PO HSPRN PRN PRN Reason: Insomnia
== END 2019-02-19 12:39 | disposition home or self-care (01) | DRG 872 ==
LOC: SCSER 16:43 → T4-A 20:02
PROVIDERS: ADMIT Family Medicine; ATTEND Family Medicine
DX: A41.9 Sepsis, unspecified organism (principal); I69.351 Hemiplegia and hemiparesis following cerebral infarction affecting right dominant side; K50.90 Crohn's disease, unspecified, without complications; E87.1 Hypo-osmolality and hyponatremia; D68.59 Other primary thrombophilia; L03.032 Cellulitis of left toe; G62.9 Polyneuropathy, unspecified; D72.819 Decreased white blood cell count, unspecified; L60.0 Ingrowing nail; D64.9 Anemia, unspecified; J45.909 Unspecified asthma, uncomplicated; G40.909 Epilepsy, unspecified, not intractable, without status epilepticus; N20.0 Calculus of kidney; K21.9 Gastro-esophageal reflux disease without esophagitis; Z88.1 Allergy status to other antibiotic agents; Z88.5 Allergy status to narcotic agent; Z88.8 Allergy status to other drugs, medicaments and biological substances; Z79.51 Long term (current) use of inhaled steroids; Z79.899 Other long term (current) drug therapy
CPT/HCPCS: 36415; 36416; 71045; 80048; 80053; 81002; 81003; 81015; 82533; 82570; 83605; 83930; 83935; 84300; 84443; 85025; 85652; 86140; 87040; 87081; 87086; 87430; 87804; 94664; 96365; J0690; J0696; J1650; J1885; J2250; J2405; J3370; J3490; Q0162

== ENCOUNTER 2019-03-16 15:20 | Emergency (ER) | payer MEDICARE ==
[2019-03-16 16:02] LABS: #Eosinphils 0.1 thou/uL (0.0-0.7); #Lymphocytes 0.9 thou/uL (1.20-3.40); #Monocytes 0.3 thou/uL (0.11-0.59); #Neutrophils 1.1 thou/uL (1.40-6.50); %Basophils 1.9 % (0.0-1.0); %Eosinophils 4.6 % (0.0-10.0); %Monocytes 13.2 % (0.0-10.0); %Neutrophils 44.3 % (42.0-75.0); Hemoglobin 11.6 g/dL (14.0-18.0); Mean Corpuscular HGB CONC 35.4 g/dL (32.0-36.0); Mean Corpuscular Hemoglobin 33.5 pg (27.0-31.0); Mean Corpuscular Volume 94.8 fL (78.0-98.0); Mean Platelet Volume 6.4 fL (7.4-10.4); Platelet Count 140 thou/uL (130-400); RBC Distribution Width 12.8 % (11.5-14.5); Red Blood Cell (RBC) Count 3.45 mill/uL (4.70-6.10); White Blood Cell (WBC) Count 2.5 thou/uL (4.8-10.8)
--- NOTE | 2019-03-16 16:10 | RAD ---
THREE VIEWS OF THE LEFT FOOT: 03/16/19 COMPARISON: 02/15/19. HISTORY: First toe infection with intermittent darkening of the area of infection and pain. FINDINGS: Three views of the left foot shows no evidence of acute fracture or dislocation. No soft tissue swell ing is seen. No degenerative changes are present. IMPRESSION: No evidence of acute osseous abnormality. POS: C
[2019-03-16 16:16] LABS: ALT (SGPT) 20 U/L (8-55); AST (SGOT) 15 U/L (5-34); Albumin 4.3 g/dL (3.5-5.0); Alkaline Phosphatase 48 U/L (40-150); Anion Gap 13 mmol/L (10-20); BUN (Urea Nitrogen) 14 mg/dL (8.9-20.6); Bilirubin, Total 0.2 mg/dL (0.2-1.2); Calc. Creatinine Clearance 0 mL/min (70-130); Calcium 9.3 mg/dL (7.8-10.44); Carbon Dioxide 22 mmol/L (22-29); Chloride 101 mmol/L (98-107); Estimated GFR-MDRD 72; Globulin 2.9 g/dL (2.4-3.5); Glucose 86 mg/dL (70-105); Potassium 3.7 mmol/L (3.5-5.1); Protein, Total 7.2 g/dL (6.0-8.3); Sodium 132 mmol/L (136-145)
== END 2019-03-16 16:45 | disposition home or self-care (01) ==
LOC: SCSER 15:20
DX: L03.032 Cellulitis of left toe (principal); Z86.73 Personal history of transient ischemic attack (TIA), and cerebral infarction without residual deficits; K21.9 Gastro-esophageal reflux disease without esophagitis; Z87.891 Personal history of nicotine dependence; Z79.899 Other long term (current) drug therapy
CPT/HCPCS: 80053; 85025

== ENCOUNTER 2019-04-07 18:35 | Emergency (ER) | payer MEDICARE ==
[2019-04-07] MEDS ORDERED: Ondansetron PF 4 MG/2 ML Vial ONE (19:28)
--- NOTE | 2019-04-07 19:47 | RAD ---
RADIOGRAPH CHEST 1 VIEW: DATE: 04/07/2019 HISTORY: 38-year-old male with fever. FINDINGS: The visualized lung tafoya are clear. The cardiomediastinal silhouette and hilar shadows are normal. The lateral costophrenic angles are sharp. The osseous structures appear normal. There is no pneumothorax. IMPRESSION: Negative.
[2019-04-07 19:57] LABS: Bilirubin Negative (Negative); Blood, Urine Negative (Negative); Clarity Clear (Clear); Glucose, Urine (Dipstick) Negative (Negative); Leukocyte Negative (Negative); Nitrite Negative (Negative); Protein, Urine (Dipstick) Negative (Neg-Trace); Urobilinogen 0.2 mg/dL (Less than 2)
[2019-04-07 20:08] LABS: ALT (SGPT) 30 U/L (8-55); AST (SGOT) 24 U/L (5-34); Albumin 4.3 g/dL (3.5-5.0); Alkaline Phosphatase 48 U/L (40-150); Anion Gap 14 mmol/L (10-20); BUN (Urea Nitrogen) 12 mg/dL (8.9-20.6); Bilirubin, Total 0.3 mg/dL (0.2-1.2); CK (CPK) 369 U/L (30-200); Calc. Creatinine Clearance 0 mL/min (70-130); Calcium 8.9 mg/dL (7.8-10.44); Carbon Dioxide 21 mmol/L (22-29); Chloride 93 mmol/L (98-107); Estimated GFR-MDRD 71; Globulin 2.3 g/dL (2.4-3.5); Glucose 97 mg/dL (70-105); Potassium 4.1 mmol/L (3.5-5.1); Protein, Total 6.6 g/dL (6.0-8.3); Sodium 124 mmol/L (136-145)
[2019-04-07 20:09] LABS: Hemoglobin 11.6 g/dL (14.0-18.0); Mean Corpuscular HGB CONC 36.4 g/dL (32.0-36.0); Mean Corpuscular Hemoglobin 33.9 pg (27.0-31.0); Mean Corpuscular Volume 93.1 fL (78.0-98.0); Mean Platelet Volume 5.9 fL (7.4-10.4); Platelet Count 118 thou/uL (130-400); RBC Distribution Width 11.8 % (11.5-14.5); Red Blood Cell (RBC) Count 3.44 mill/uL (4.70-6.10); White Blood Cell (WBC) Count 2.3 thou/uL (4.8-10.8)
[2019-04-07 20:19] LABS: #Eosinphils 0.1 thou/uL (0.0-0.7); #Lymphocytes 0.8 thou/uL (1.20-3.40); #Monocytes 0.3 thou/uL (0.11-0.59); %Basophils 2.1 % (0.0-1.0); %Lymphocytes 34.4 % (21.0-51.0); %Monocytes 12.8 % (0.0-10.0); %Neutrophils 45.8 % (42.0-75.0); MDiff Complete? YES; Platelet Morphology Comment Appears Decreased; Polychromasia SLIGHT = 2-3 cells (100X) (0-2/hpf)
[2019-04-07] MEDS ORDERED: Ketorolac Tromethamine 30 MG/ML VIAL ONE (20:29)
[2019-04-07] MEDS ORDERED: Acetaminophen 325 MG TAB ONE (20:30)
[2019-04-07] MEDS ORDERED: Magnesium Sulfate 2 GM/NS 0.9% 50 ML BAG ONE (21:24)
[2019-04-07] MEDS ORDERED: methylPREDNISolone Sod Succ/PF 125 MG/2 ML VIAL ONE (21:24)
== END 2019-04-07 22:10 | disposition home or self-care (01) ==
LOC: SCSER 18:35
DX: D61.818 Other pancytopenia (principal); E87.6 Hypokalemia; R51 Headache; G40.909 Epilepsy, unspecified, not intractable, without status epilepticus; K21.9 Gastro-esophageal reflux disease without esophagitis; Z87.891 Personal history of nicotine dependence; G62.9 Polyneuropathy, unspecified; K50.90 Crohn's disease, unspecified, without complications; D68.59 Other primary thrombophilia; Z87.442 Personal history of urinary calculi; Z79.899 Other long term (current) drug therapy
CPT/HCPCS: 71045; 80053; 81003; 82550; 83605; 85025; 87040; 87804; 96361; 96365; 96375; J1885; J2405; J2930; J3475

== ENCOUNTER 2019-08-05 14:20 | Emergency (ER) | payer MEDICARE | END 2019-08-05 15:00 | disposition home or self-care (01) | LOC: SCSER/OP 14:20 | DX: J32.9 Chronic sinusitis, unspecified (principal); Z86.73 Personal history of transient ischemic attack (TIA), and cerebral infarction without residual deficits; G40.909 Epilepsy, unspecified, not intractable, without status epilepticus; K21.9 Gastro-esophageal reflux disease without esophagitis; Z87.891 Personal history of nicotine dependence; Z79.899 Other long term (current) drug therapy | CPT/HCPCS: 10060 ==

== ENCOUNTER 2020-08-13 20:52 | Inpatient (IN) | payer MEDICARE ==
[~2020-08-13 20:52] MED LIST changes: -Gadobenate Dimeglumine 529 MG/1 ML (20ML VIAL) ONE; +Iopamidol-370 76% 500 ML 1 ML ONE
[2020-08-13 21:07] LABS: #Eosinphils 0.1 thou/uL (0.0-0.7); #Lymphocytes 0.8 thou/uL (1.20-3.40); #Monocytes 0.3 thou/uL (0.11-0.59); #Neutrophils 1.4 thou/uL (1.40-6.50); %Basophils 1.5 % (0.0-1.0); %Eosinophils 4.5 % (0.0-10.0); %Lymphocytes 31.9 % (21.0-51.0); %Monocytes 9.3 % (0.0-10.0); %Neutrophils 52.8 % (42.0-75.0); Hemoglobin 11.3 g/dL (14.0-18.0); Mean Corpuscular Volume 97.2 fL (78.0-98.0); Mean Platelet Volume 6.9 fL (7.4-10.4); Platelet Count 141 thou/uL (130-400); RBC Distribution Width 12.7 % (11.5-14.5); Red Blood Cell (RBC) Count 3.42 mill/uL (4.70-6.10); White Blood Cell (WBC) Count 2.6 thou/uL (4.8-10.8)
[2020-08-13 21:12] LABS: INR-International Normal Ratio 1.1
[2020-08-13 21:13] LABS: PTT 34.4 sec (22.9-36.1)
[2020-08-13 21:25] LABS: ALT (SGPT) 17 U/L (8-55); AST (SGOT) 16 U/L (5-34); Albumin 4.1 g/dL (3.5-5.0); Alkaline Phosphatase 70 U/L (40-110); Anion Gap 13 mmol/L (10-20); BUN (Urea Nitrogen) 10 mg/dL (8.9-20.6); Bilirubin, Total 0.2 mg/dL (0.2-1.2); CK (CPK) 73 U/L (30-200); Calc. Creatinine Clearance 0 mL/min (70-130); Calcium 8.6 mg/dL (7.8-10.44); Carbon Dioxide 22 mmol/L (22-29); Chloride 103 mmol/L (98-107); Estimated GFR-MDRD 70; Globulin 2.5 g/dL (2.4-3.5); Glucose 103 mg/dL (70-105); Potassium 3.1 mmol/L (3.5-5.1); Protein, Total 6.6 g/dL (6.0-8.3); Sodium 135 mmol/L (136-145)
--- NOTE | 2020-08-13 21:26 | CT ---
CT BRAIN WITHOUT CONTRAST: 08/13/20 HISTORY: New left sided weakness. History of right sided weakness from prior stroke. COMPARISON: CT brain 01/07/18. FINDINGS: Similar appearance of the internal and external auditory canal from the MRI of brain 07/23/18 exam. N o acute hemorrhage or infarct. No midline shift or mass effect. Ventricular size and extra-axial CSF spaces are normal. Calvarium is intact. Paranasal sinuses and mastoids are relatively clear. IMPRESSION: No acute intracranial abnormality. Code LUIS Lieberman notified of findings via telephone at 9:10 p.m. POS: HOME
--- NOTE | 2020-08-13 21:34 | CT ---
CT arteriogram neck with IV contrast and 3-D imaging CT arteriogram head with IV contrast and 3-D imaging HISTORY: Left-sided weakness. FINDINGS: There is good contrast opacification of the aortic arch with normal branching of the great vessels. Vertebral and carotid system. Carotid bifurcations are widely patent. [place] of [place] is intact. Good flow into each cerebral and cerebellar system. No enhancing brain lesions are apparent. IMPRESSION : No abnormalities are demonstrated. Findings were called to Dr. Lieberman in the emergency department at 2126 hours Code CR.
[2020-08-13 21:54] LABS: INR-International Normal Ratio 1.1; PTT 35.8 sec (22.9-36.1); Prothrombin Time 13.9 sec (12.0-14.7)
[2020-08-13 22:09] LABS: Bilirubin Negative (Negative); Blood, Urine Negative (Negative); Clarity Turbid (Clear); Glucose, Urine (Dipstick) Normal (Negative); Ketone, Urine Negative (Negative); Leukocyte 75 Leu/uL (Negative); Nitrite Negative (Negative); Protein, Urine (Dipstick) Negative (Neg-Trace); RBC/HPF 0-3 HPF (0-3); Squamous Epithelial None Seen HPF (0-3); Urobilinogen Normal mg/dL (Less than 2)
[2020-08-13 22:18] LABS: Bacteria/HPF None Seen HPF (None Seen)
[2020-08-13] MEDS ORDERED: Potassium Chloride 20 MEQ TAB ONE (22:29)
[2020-08-13] MEDS ORDERED: Aspirin 325 MG TAB ONE (22:29)
[2020-08-14 00:44] LABS: Lactic Acid 2.1 mmol/L (0.5-2.2)
[2020-08-14] MEDS ORDERED: Ondansetron ODT 4 MG TAB PO PRN (01:23)
[2020-08-14] MEDS ORDERED: Calcium Carbonate 500 MG ChewTAB PO PRN (01:23)
[2020-08-14] MEDS ORDERED: Ondansetron PF 4 MG/2 ML Vial IVP PRN (01:23)
--- NOTE | 2020-08-14 01:31 | PDOC.HHP ---
Hospitalist HPI - History of Present Illness L sided face and neck numbess and weakness History of Present Illness: Case of an 39-year-old male with pmx of seizures, protein s + c def, chron's disease, R hemiplegia, recurrent kidney stone, neuropathy, and gerd who comes to hospital after an episode of L sided face / neck weakness and numbness with associated slur speech. patient arrived by air medical after 1 hour of symptoms initiation. at ED patient had his eyes tightly closed was uncooperative and seemed confused. Patient is moving his left upper extremity left lower extremity normally. upon examination cranial nerves seems to be normal with no deficit. review of the patient's chart reveals 46 visits to EDs. In 2018 he had an admission and an MRI of his brain was normal, apparently was diagnosed with conversion disorder. due to this history and hx of seizures and no noted cranial nerve deficit tpa was not given. examination was difficult given patient seemed confused and was uncooperative. during my evaluation patient refers not remembering the event, most of the history given by career and technology education teacher. last episode of reported seizure was monday with multiple hours of post ictal state Hospitalist ROS - Review of Systems ROS unobtainable: due to mental status Hospitalist History - Past Surgical History Other Surgical History: lipoma removal - Family History Family History: reports: cancer Other Family History: lupus - Social History Smoking Status: Former smoker Alcohol: reports: None Drugs: reports: none - Exam General Appearance: NAD Eye: PERRL, anicteric sclera ENT: normocephalic atraumatic, no oropharyngeal lesions, moist mucosa Neck: supple, symmetric, no JVD Heart: RRR, no murmur, no gallops Respiratory: CTAB, no wheezes, no rales Gastrointestinal: soft, non-tender, non-distended, normal bowel sounds Extremities: no cyanosis, no clubbing, no edema Skin: normal turgor, no lesions, no rashes Neurological: cranial nerve grossly intact, normal sensation to touch, no weakness, no focal deficits, no new deficit Musculoskeletal: normal tone, no muscle wasting Musculoskeletal - other findings: L sided wekaness Psychiatric: oriented to person, somnolent Hospitalist Results - Labs Result Diagrams: 08/13/20 20:57 08/13/20 20:57 Lab results: WBC 2.6 thou/uL (4.8-10.8) L 08/13/20 20:57 Hgb 11.3 g/dL (14.0-18.0) L 08/13/20 20:57 Hct 33.2 % (42.0-52.0) L 08/13/20 20:57 MCV 97.2 fL (78.0-98.0) 08/13/20 20:57 Plt Count 141 thou/uL (130-400) 08/13/20 20:57 Neutrophils % 52.8 % (42.0-75.0) 08/13/20 20:57 Sodium 135 mmol/L (136-145) L 08/13/20 20:57 Potassium 3.1 mmol/L (3.5-5.1) L 08/13/20 20:57 Chloride 103 mmol/L (98-107) 08/13/20 20:57 Carbon Dioxide 22 mmol/L (22-29) 08/13/20 20:57 BUN 10 mg/dL (8.9-20.6) 08/13/20 20:57 Creatinine 1.17 mg/dL (0.7-1.3) 08/13/20 20:57 Glucose 103 mg/dL (70-105) 08/13/20 20:57 Lactic Acid 2.1 mmol/L (0.5-2.2) 08/14/20 00:19 Calcium 8.6 mg/dL (7.8-10.44) 08/13/20 20:57 Total Bilirubin 0.2 mg/dL (0.2-1.2) 08/13/20 20:57 AST 16 U/L (5-34) 08/13/20 20:57 ALT 17 U/L (8-55) 08/13/20 20:57 Alkaline Phosphatase 70 U/L (40-110) 08/13/20 20:57 Creatine Kinase 73 U/L (30-200) 08/13/20 20:57 Troponin I Less than 0.010 ng/mL (< 0.028) 08/13/20 20:57 Serum Total Protein 6.6 g/dL (6.0-8.3) 08/13/20 20:57 Albumin 4.1 g/dL (3.5-5.0) 08/13/20 20:57 Urine Ketones Negative mg/dL (Negative) 08/13/20 21:45 Urine Blood Negative (Negative) 08/13/20 21:45 Urine Nitrite Negative (Negative) 08/13/20 21:45 Ur Leukocyte Esterase 75 [place]/uL (Negative) A 08/13/20 21:45 Urine RBC 0-3 HPF (0-3) 08/13/20 21:45 Urine WBC 4-6 HPF (0-3) A 08/13/20 21:45 Ur Squamous Epith Cells None Seen HPF (0-3) 08/13/20 21:45 Urine Bacteria None Seen HPF (None Seen) 08/13/20 21:45 Hospitalist H&P A/P - Problem (1) Weakness on left side of face Code(s): R29.810 - FACIAL WEAKNESS Status: Acute (2) Seizure disorder Code(s): G40.909 - EPILEPSY, UNSP, NOT INTRACTABLE, WITHOUT STATUS EPILEPTICUS Status: Chronic (3) Leucopenia Code(s): D72.819 - DECREASED WHITE BLOOD CELL COUNT, UNSPECIFIED Status: Acute (4) Asthma Code(s): J45.909 - UNSPECIFIED ASTHMA, UNCOMPLICATED Status: Chronic (5) Crohn's disease Code(s): K50.90 - CROHN'S DISEASE, UNSPECIFIED, WITHOUT COMPLICATIONS Status: Chronic (6) Protein C deficiency Code(s): D68.59 - OTHER PRIMARY THROMBOPHILIA Status: Chronic - Plan Plan: case of an 39y/o male with the stated pmhx who present with l sided face weakness l sided face weakness - r/o cva - ct negative, cta neagtive. - mri in am - only possible risk factor could be protein c + s def - neurology consulted - npo - pt / ot / speech - started prophylacrically on asa + statin until stroke is r/o seizures - npo - keppra iv - this could have been an episode of seizure - caregiver report last episode of seizure was monday - eeg
[2020-08-14 02:45] LABS: Bacteria/HPF None Seen HPF (None Seen); Bilirubin Negative (Negative); Blood, Urine Negative (Negative); Clarity Clear (Clear); Glucose, Urine (Dipstick) Normal (Negative); Ketone, Urine Negative (Negative); Leukocyte Negative Leu/uL (Negative); Nitrite Negative (Negative); Protein, Urine (Dipstick) Negative (Neg-Trace); RBC/HPF 0-3 HPF (0-3); Specific Gravity, Urine 1.023 (1.002-1.036); Squamous Epithelial None Seen HPF (0-3); Urobilinogen Normal mg/dL (Less than 2); WBC/HPF 0-3 HPF (0-3); pH, Urine 7.5 (5.0-9.0)
[2020-08-14 02:49] LABS: Urine Culture Reflex No No
[2020-08-14] MEDS: Sodium Chloride 0.9% 1,000 ML IV SCH ×4 (03:52→18:44)
[2020-08-14 05:10] LABS: Band 3 % (5-11); Eosinophils 1 % (0-10); Hemoglobin 11.3 g/dL (14.0-18.0); Lymphocytes 35 % (21-51); MDiff Complete? YES; Mean Corpuscular HGB CONC 34.6 g/dL (32.0-36.0); Mean Corpuscular Hemoglobin 33.7 pg (27.0-31.0); Mean Corpuscular Volume 97.3 fL (78.0-98.0); Mean Platelet Volume 7.2 fL (7.4-10.4); Monocytes 7 % (0-10); Neutrophil 53 % (42-75); Platelet Count 145 thou/uL (130-400); Platelet Morphology Comment Appears Adequate; RBC Distribution Width 12.9 % (11.5-14.5); Red Blood Cell (RBC) Count 3.36 mill/uL (4.70-6.10); White Blood Cell (WBC) Count 3.4 thou/uL (4.8-10.8)
[2020-08-14 05:32] LABS: ALT (SGPT) 17 U/L (8-55); AST (SGOT) 15 U/L (5-34); Albumin 4.1 g/dL (3.5-5.0); Alkaline Phosphatase 69 U/L (40-110); Anion Gap 13 mmol/L (10-20); BUN (Urea Nitrogen) 7 mg/dL (8.9-20.6); Bilirubin, Total 0.3 mg/dL (0.2-1.2); Calc. Creatinine Clearance 89 mL/min (70-130); Calcium 8.9 mg/dL (7.8-10.44); Carbon Dioxide 21 mmol/L (22-29); Cardiac Risk 2.7 (Less than 4.5); Chloride 104 mmol/L (98-107); Cholesterol 177 mg/dl (< 200 Desired); Estimated GFR-MDRD 84; Globulin 2.4 g/dL (2.4-3.5); Glucose 87 mg/dL (70-105); HDL Cholesterol 65 mg/dL (>60 Neg Risk); LDL Cholesterol, Calculated 103 mg/dL; Potassium 3.8 mmol/L (3.5-5.1); Protein, Total 6.5 g/dL (6.0-8.3); Sodium 134 mmol/L (136-145); Triglycerides 44 mg/dL (Less than 150)
[2020-08-14] MEDS ORDERED: levETIRAcetam in NS 1,000 MG in Premix Bag 1 BAG IVPB SCH (09:00)
[2020-08-14] MEDS ORDERED: Acetaminophen 325 MG TAB PO PRN (09:49)
[2020-08-14] MEDS: Enoxaparin Sodium 40 MG/0.4 ML SYRINGE SC SCH (09:51)
--- NOTE | 2020-08-14 10:28 | CT ---
CT arteriogram neck with IV contrast and 3-D imaging CT arteriogram head with IV contrast and 3-D imaging HISTORY: Left-sided weakness. FINDINGS: There is good contrast opacification of the aortic arch with normal branching of the great vessels. Vertebral and carotid system. Carotid bifurcations are widely patent. [place] of [place] is intact. Good flow into each cerebral and cerebellar system. No enhancing brain lesions are apparent. IMPRESSION : No abnormalities are demonstrated. Findings were called to Dr. Lieberman in the emergency department at 2126 hours Code CR. Transcribed Date/Time: 08/14/2020 10:27 AM
[2020-08-14] MEDS: Aspirin 325 mg Enteric Coated Tablet PO SCH (11:06)
--- NOTE | 2020-08-14 12:15 | CON ---
NEUROLOGY CONSULTATION DATE OF CONSULTATION: 08/14/2020 REASON FOR CONSULTATION: Left-sided facial numbness, left facial weakness, and left upper extremity paresthesias and weakness. HISTORY OF PRESENT ILLNESS: Mr. Jacob is a 39-year-old male with medical history significant for seizures, protein C and S deficiency, Crohn disease, right hemiplegia, recurrent kidney stones, neuropathy, and GERD, presented to the hospital after an episode of left facial paresthesias and weakness with problems with slurred speech. He also has paresthesia and weakness of the of the left upper extremity associated with extreme confusion. Per mother, he is able to move his left upper and lower extremity normal, but he does have residual right hemiplegia due to stroke 2 years ago. On arrival to the emergency room, he was confused, but was able to move his left upper and lower extremity normally. On review of the records, the patient's chart revealed several visits to the emergency room. In 2018, he had an admission because of stroke and MRI of the brain was normal and he was diagnosed with conversion disorder per mother. He has been on a wheelchair with right hemiplegia since the last 2 years because of stroke, which is not seen on the recent head CT. The mother also complained of seizures. Mother also reported the last episode of seizure was on Monday and he was postictal for several hours. REVIEW OF SYSTEMS: Unobtainable due to the patient's mental status. PAST SURGICAL HISTORY: Lipoma removal. PAST MEDICAL HISTORY: Conversion disorder, seizures, right hemiplegia, protein C and S deficiency. FAMILY HISTORY: Significant for cancer and lupus. SOCIAL HISTORY: Former smoker. Denies alcohol or illegal drug use. Allergies: [place] juice, promethazine HCl, chocolate flavor PHYSICAL EXAMINATION: 100/66 88 18 General Appearance: NAD Eye: PERRL, anicteric sclera ENT: normocephalic atraumatic, no oropharyngeal lesions, moist mucosa Neck: supple, symmetric, no JVD Heart: RRR, no murmur, no gallops Respiratory: CTAB, no wheezes, no rales Gastrointestinal: soft, non-tender, non-distended, normal bowel sounds Extremities: no cyanosis, no clubbing, no edema Skin: normal turgor, no lesions, no rashes Neurological: Mental status, the patient is alert and oriented to person and place, but not year or month. He is somnolent. Cranial nerves 2 through 12 are intact. Motor, muscle bulk and tone are normal. Right hemiplegia. Unable to move right upper and lower extremity. Cerebellar; unable to perform on the right secondary to weakness. Gait deferred due to the patient's safety reason. DATA REVIEWED: I reviewed the labs, which were significant for hemoglobin of 11.3, hematocrit of 33.2, and also hyponatremia of 135 and hypokalemia of 3.1. Lab results: WBC 2.6 thou/uL (4.8-10.8) L 08/13/20 20:57 Hgb 11.3 g/dL (14.0-18.0) L 08/13/20 20:57 Hct 33.2 % (42.0-52.0) L 08/13/20 20:57 MCV 97.2 fL (78.0-98.0) 08/13/20 20:57 Plt Count 141 thou/uL (130-400) 08/13/20 20:57 Neutrophils % 52.8 % (42.0-75.0) 08/13/20 20:57 Sodium 135 mmol/L (136-145) L 08/13/20 20:57 Potassium 3.1 mmol/L (3.5-5.1) L 08/13/20 20:57 Chloride 103 mmol/L (98-107) 08/13/20 20:57 Carbon Dioxide 22 mmol/L (22-29) 08/13/20 20:57 BUN 10 mg/dL (8.9-20.6) 08/13/20 20:57 Creatinine 1.17 mg/dL (0.7-1.3) 08/13/20 20:57 Glucose 103 mg/dL (70-105) 08/13/20 20:57 Lactic Acid 2.1 mmol/L (0.5-2.2) 08/14/20 00:19 Calcium 8.6 mg/dL (7.8-10.44) 08/13/20 20:57 Total Bilirubin 0.2 mg/dL (0.2-1.2) 08/13/20 20:57 AST 16 U/L (5-34) 08/13/20 20:57 ALT 17 U/L (8-55) 08/13/20 20:57 Alkaline Phosphatase 70 U/L (40-110) 08/13/20 20:57 Creatine Kinase 73 U/L (30-200) 08/13/20 20:57 Troponin I Less than 0.010 ng/mL (< 0.028) 08/13/20 20:57 Serum Total Protein 6.6 g/dL (6.0-8.3) 08/13/20 20:57 Albumin 4.1 g/dL (3.5-5.0) 08/13/20 20:57 Urine Ketones Negative mg/dL (Negative) 08/13/20 21:45 Urine Blood Negative (Negative) 08/13/20 21:45 Urine Nitrite Negative (Negative) 08/13/20 21:45 Ur Leukocyte Esterase 75 [place]/uL (Negative) A 08/13/20 21:45 Urine RBC 0-3 HPF (0-3) 08/13/20 21:45 Urine WBC 4-6 HPF (0-3) A 08/13/20 21:45 Ur Squamous Epith Cells None Seen HPF (0-3) 08/13/20 21:45 Urine Bacteria None Seen HPF (None Seen) 08/13/20 21:45 ASSESSMENT AND PLAN: (1) Weakness on left side of face Code(s): R29.810 - FACIAL WEAKNESS Status: Acute (2) Seizure disorder Code(s): G40.909 - EPILEPSY, UNSP, NOT INTRACTABLE, WITHOUT STATUS EPILEPTICUS Status: Chronic (3) Leucopenia Code(s): D72.819 - DECREASED WHITE BLOOD CELL COUNT, UNSPECIFIED Status: Acute (4) Asthma Code(s): J45.909 - UNSPECIFIED ASTHMA, UNCOMPLICATED Status: Chronic (5) Crohn's disease Code(s): K50.90 - CROHN'S DISEASE, UNSPECIFIED, WITHOUT COMPLICATIONS Status: Chronic (6) Protein C deficiency Code(s): D68.59 - OTHER PRIMARY THROMBOPHILIA Status: Chronic Mr. Chaparro Jacob is a 39-year-old male, who presented with left-sided facial weakness with dysarthria and dysphagia and left upper extremity paresthesias and numbness, which is improved since admission. Head CT was done in the emergency room, which was negative for acute intracranial pathology. We will recheck thrombosis panel. Continue aspirin and high-intensity statin for secondary stroke prevention. Permissive control of blood pressure at this time. Strict control of blood glucose. Continue Keppra for seizure prophylaxis. Ativan 2 mg IV for seizure greater than 2 minutes. Observe seizure precautions. Neuro checks every 4 hours. We will proceed with further workup with MRIs positive for stroke. PT/OT/speech. EEG to rule out cortical irritability and evaluate for current confusion. Deep venous thrombosis prophylaxis. We will continue to follow. Thank you for the consult. Job ID: [id number] [facility] HOSPITALMisael
--- NOTE | 2020-08-14 12:28 | PDOC.EEG ---
Neurology EEG Report - Report Report: This EEG was performed using 24 channel [employer] video digital EEG machine with 24 disc electrodes. This was an extended 2 hours 9 minutes of EEG recording. Digital analysis of the EEG was done for Fernando and seizure detection which revealed no abnormalities. Background: The posterior background rhythm is 9-10 Hz. The posterior background rhythm attenuates with eye opening and enhances with eye closure. Photic stimulation: Bioccipital symmetric driving response seen with photic stimulation. Hyperventilation: Not performed. Sleep: Drowsiness is observed EEG diagnosis: Normal awake and drowsy EEG.
--- NOTE | 2020-08-14 12:32 | MRI ---
MRI BRAIN WITHOUT CONTRAST: HISTORY: TIA, right side paralysis. New onset left-sided weakness. COMPARISON: 07/23/2018. FINDINGS: No restricted diffusion is seen. No evidence of infarct, hemorrhage, midline shift, or abnormal extr aaxial fluid collections are seen. The ventricular size is appropriate and the basilar cisterns dum[place] nt. The signal abnormality in the right internal auditory canal is again seen with stable lesion, li kee acoustic neuroma. Absence of IV contrast reduces the sensitivity of the exam for satisfactory e valuation of this lesion. The visualized paranasal sinuses and mastoid air cells are well aerated. IMPRESSION: 1. No evidence of acute intracranial process. 2. Stable right internal auditory canal lesion. POS: AH
[2020-08-14 12:46] LABS: INR-International Normal Ratio 1.1; PTT 48.1 sec (22.9-36.1); Prothrombin Time 14.5 sec (12.0-14.7)
[2020-08-14 12:47] LABS: D-Dimer Test 1.73 *mcg/mL (0.27-0.43)
[2020-08-14 13:32] LABS: Amphetamine Not Detected (NotDetected); Barbiturates Screen Not Detected (NotDetected); Benzodiazepine Screen Not Detected (NotDetected); Cocaine Metabolite Screen Not Detected (NotDetected); Medtox Control Line Valid? VALID (VALID); Medtox Reader # READER 1; Methadone Not Detected (NotDetected); Methamphetamine Not Detected (NotDetected); Opiate Screen Not Detected (NotDetected); Oxycodone Screen Not Detected (NotDetected); Phencyclidine (PCP) Not Detected (NotDetected); THC/Cannabinoid Screen Not Detected (NotDetected); Tricyclic Screen Detected (NotDetected)
[2020-08-14] MEDS ORDERED: Dicyclomine 10 MG CAP PO PRN (13:39)
[2020-08-14] MEDS ORDERED: Non-Formulary Item 1 EACH (Ventolin Hfa Inhaler [Ventolin Hfa Inhaler] 60 PUFF Aer) INH PRN (13:39)
--- NOTE | 2020-08-14 13:44 | RAD ---
EXAM: Chest one view: HISTORY: Follow-up pneumonia COMPARISON: 04/07/2019 FINDINGS: Heart size: Within normal limits. Lungs: Clear of acute process. No evidence for confluent lobar pneumonia, significant pleural effusion, acute edema, or pneumothorax , or other significant acute process. IMPRESSION: No significant acute intrathoracic disease.
[2020-08-14] MEDS ORDERED: PROVENTIL INHALER 6.7 G (200 INHALATIONS) INH PRN (14:04)
[2020-08-14 14:56] LABS: SARS-CoV-2 MS2 Positive; SARS-CoV-2 N Gene Negative; SARS-CoV-2 S Gene Negative; SARS-CoV-2 by NAA Not Detected (NotDetected); SARS-CoV-2 orf1ab Negative
[2020-08-14 16:56] LABS: HEX PHOS LA Tube 1 44.7 SEC; HEX PHOS LA Tube 2 41.9 SEC; Hexagonal Phospholipid Neut 2.8 SEC (0-8.0)
[2020-08-14] MEDS ORDERED: oxyCODONE 5 MG TAB PO PRN (17:24)
[2020-08-14] MEDS ORDERED: Melatonin 3 MG TAB PO PRN (17:54)
[2020-08-14] MEDS: Lubiprostone 24 MCG CAP PO SCH (18:23)
[2020-08-14] MEDS: Gabapentin 300 MG CAP PO SCH ×2 (18:26→21:13)
[2020-08-14] MEDS: sulfaSALAzine 500 MG TAB PO SCH ×2 (18:26→21:13)
[2020-08-14] MEDS: Mometasone 200 MCG/Formoterol 5 MCG 120 PUFF INHALER INH SCH (19:31)
[2020-08-14] MEDS ORDERED: CEPHALEXIN PO SCH (21:00)
[2020-08-14] MEDS ORDERED: Cephalexin 250 MG CAP PO SCH (21:00)
[2020-08-14] MEDS ORDERED: Atorvastatin Calcium 40 MG TAB PO SCH (21:00)
[2020-08-14] MEDS ORDERED: Non-Formulary Item 1 EACH (Fluticasone/Salmeterol [Advair Diskus 250/50] 1 EACH Blst.W.De IH SCH (21:00)
[2020-08-14] MEDS: Trospium 20 MG TAB PO SCH (21:12)
[2020-08-14] MEDS: OXcarbazepine 300 MG TAB PO SCH (21:12)
[2020-08-14] MEDS: levETIRAcetam 500 MG TAB PO SCH (21:13)
[2020-08-14] MEDS: Lacosamide 50 mg Tablet PO SCH (21:14)
[2020-08-14] MEDS: Zonisamide 100 MG CAP PO SCH (21:15)
[2020-08-15] MEDS ORDERED: Amitriptyline HCl 100 MG TAB PO SCH (02:00)
[2020-08-15 06:43] VITALS: BMI 17.4
[2020-08-15] MEDS: Mometasone 200 MCG/Formoterol 5 MCG 120 PUFF INHALER INH SCH (06:43)
[2020-08-15 08:39] VITALS: BP 92/55; TEMP 97.4
[2020-08-15] MEDS: sulfaSALAzine 500 MG TAB PO SCH (09:04)
[2020-08-15] MEDS: Enoxaparin Sodium 40 MG/0.4 ML SYRINGE SC SCH (09:04)
[2020-08-15] MEDS: Aspirin 325 mg Enteric Coated Tablet PO SCH (09:05)
[2020-08-15] MEDS: levETIRAcetam 500 MG TAB PO SCH (09:05)
[2020-08-15] MEDS: OXcarbazepine 300 MG TAB PO SCH (09:05)
[2020-08-15] MEDS: Lubiprostone 24 MCG CAP PO SCH (09:06)
[2020-08-15] MEDS: Lacosamide 50 mg Tablet PO SCH (09:06)
[2020-08-15] MEDS: Gabapentin 300 MG CAP PO SCH (09:06)
[2020-08-15] MEDS: Trospium 20 MG TAB PO SCH (09:07)
[2020-08-15] MEDS: Zonisamide 100 MG CAP PO SCH (09:07)
--- NOTE | 2020-08-15 13:54 | PDOC.NEUPN ---
- Subjective Encounter Date: 08/15/20 Subjective: Mr. Jacob is alert and awake and is oriented to person place and time. He is waiting to be discharged and denies any new complaints in the last 24 hours. Mother at bedside - Objective Vital Signs & Weight: Vital Signs (12 hours) Temp Pulse Resp BP Pulse Ox 08/15/20 08:00 97.4 F L 74 10 L 92/55 L 96 08/15/20 04:00 97.5 F L 79 16 99/60 96 Weight Weight 121 lb 9.6 oz I&O: 08/14/20 08/15/20 08/16/20 06:59 06:59 06:59 Intake Total 168 1481 240 Output Total 1020 1500 Balance -852 -19 240 Result Diagrams: 08/14/20 04:23 08/14/20 04:23 Additional Labs: Accuchecks 08/15/20 05:39 POC Glucose 84 Radiology Reviewed by me: Yes EKG Reviewed by me: Yes ROS - Review of Systems Constitutional: denies: fever, chills, sweats, weakness, malaise, other Eyes: denies: pain, vision change, conjunctivae inflammation, eyelid inflammation, redness, other ENT: denies: ear pain, ear discharge, nose pain, nose discharge, nose congestion, mouth pain, mouth swelling, throat pain, throat swelling, other Respiratory: denies: cough, dry, shortness of breath, hemoptysis, SOB with excertion, pleuritic pain, sputum, wheezing, other Cardiovascular: denies: no pertinent history, AFIB, CAD, CHF, HTN, OK, Syncope, Hyperlipidemia, Mitral valve stenosis, Aortic stenosis, Valve insufficiency, Pulmonary hypertension, Other Genitourinary: denies: dysuria, frequency, incontinence, hematuria, retention, other Musculoskeletal: denies: neck pain, shoulder pain, arm pain, back pain, hand pain, leg pain, foot pain, other Skin: denies: rash, lesions, varun, bruising, other Neurological: reports: weakness, numbness, incoordination, change in speech - Medication Medications: Active Medications Generic Name Dose Route Start Last Admin Trade Name Freq PRN Reason Stop Dose Admin Acetaminophen 650 mg 08/14/20 09:49 08/14/20 11:05 Acetaminophen 325 Mg Tab PO 650 mg Q8H PRN Administration Headache/Fever or Pain Amitriptyline HCl 100 mg 08/15/20 02:00 08/15/20 01:32 Amitriptyline Hcl 100 Mg Tab PO 100 mg 0200 ARMANDO Administration Aspirin 325 mg 08/14/20 09:00 08/15/20 09:05 Aspirin 325 Mg Enteric Coated Tablet PO 325 mg DAILY RAMANDO Administration Atorvastatin Calcium 40 mg 08/14/20 21:00 08/14/20 21:13 Atorvastatin Calcium 40 Mg Tab PO 40 mg HS ARMANDO Administration Enoxaparin Sodium 40 mg 08/14/20 09:00 08/15/20 09:04 Enoxaparin Sodium 40 Mg/0.4 Ml Syringe SC 40 mg 0900 ARMANDO Administration Gabapentin 300 mg 08/14/20 15:00 08/15/20 09:06 Gabapentin 300 Mg Cap PO 300 mg TID ARMANDO Administration Lacosamide 50 mg 08/14/20 21:00 08/15/20 09:06 Lacosamide 50 Mg Tablet PO 50 mg BID ARMANDO Administration Levetiracetam 1,500 mg 08/14/20 21:00 08/15/20 09:05 Levetiracetam 500 Mg Tab PO 1,500 mg BID ARMANDO Administration Lubiprostone 24 mcg 08/14/20 17:00 08/15/20 09:06 Lubiprostone 24 Mcg Cap PO Not Given BID-WM ARMANDO Mometasone Furoate/Formoterol Fumar 1 puff 08/14/20 18:30 08/15/20 06:43 Mometasone 200 Mcg/Formoterol 5 Mcg 120 Puff Inhaler INH 1 puff BID-RT ARMANDO Administration Oxcarbazepine 300 mg 08/14/20 21:00 08/15/20 09:05 Oxcarbazepine 300 Mg Tab PO 300 mg BID ARMANDO Administration Pantoprazole Sodium 40 mg 08/15/20 09:00 08/15/20 09:07 Pantoprazole 40 Mg Tab PO 40 mg DAILY ARMANDO Administration Sodium Chloride 10 ml 08/14/20 01:23 08/14/20 21:11 Flush - Normal Saline 10 Ml Syringe IVF 10 ml PRN PRN Administration Saline Flush Sulfasalazine 1,000 mg 08/14/20 15:00 08/15/20 09:04 Sulfasalazine 500 Mg Tab PO 1,000 mg TID ARMANDO Administration Trospium 20 mg 08/14/20 21:00 08/15/20 09:07 Trospium 20 Mg Tab PO 20 mg BID ARMANDO Administration Zonisamide 300 mg 08/14/20 21:00 08/15/20 09:07 Zonisamide 100 Mg Cap PO 300 mg BID ARMANDO Administration - Exam General Appearance: awake alert Eye: PERRL ENT: normocephalic atraumatic Neck: supple Respiratory: CTAB Cardiovascular: RRR Gastrointestinal: soft Extremities: no cyanosis Skin: normal turgor Neurological: no new deficit Musculoskeletal: no muscle wasting PSYCH: normal affect, normal behavior, A&O x 3 Results - Labs Result Diagrams: 08/14/20 04:23 08/14/20 04:23 Lab results: WBC 3.4 thou/uL (4.8-10.8) L 08/14/20 04:23 Hgb 11.3 g/dL (14.0-18.0) L 08/14/20 04:23 Hct 32.7 % (42.0-52.0) L 08/14/20 04:23 MCV 97.3 fL (78.0-98.0) 08/14/20 04:23 Plt Count 145 thou/uL (130-400) 08/14/20 04:23 Neutrophils % 52.8 % (42.0-75.0) 08/13/20 20:57 Band Neuts % (Manual) 3 % (5-11) L 08/14/20 04:23 Sodium 134 mmol/L (136-145) L 08/14/20 04:23 Potassium 3.8 mmol/L (3.5-5.1) 08/14/20 04:23 Chloride 104 mmol/L (98-107) 08/14/20 04:23 Carbon Dioxide 21 mmol/L (22-29) L 08/14/20 04:23 BUN 7 mg/dL (8.9-20.6) L 08/14/20 04:23 Creatinine 1.00 mg/dL (0.7-1.3) 08/14/20 04:23 Glucose 87 mg/dL (70-105) 08/14/20 04:23 Lactic Acid 2.1 mmol/L (0.5-2.2) 08/14/20 00:19 Calcium 8.9 mg/dL (7.8-10.44) 08/14/20 04:23 Total Bilirubin 0.3 mg/dL (0.2-1.2) 08/14/20 04:23 AST 15 U/L (5-34) 08/14/20 04:23 ALT 17 U/L (8-55) 08/14/20 04:23 Alkaline Phosphatase 69 U/L (40-110) 08/14/20 04:23 Creatine Kinase 73 U/L (30-200) 08/13/20 20:57 Troponin I Less than 0.010 ng/mL (< 0.028) 08/13/20 20:57 C-Reactive Protein Less than 0.50 mg/dL (= or < 0.5) 08/14/20 04:23 Serum Total Protein 6.5 g/dL (6.0-8.3) 08/14/20 04:23 Albumin 4.1 g/dL (3.5-5.0) 08/14/20 04:23 Urine Ketones Negative mg/dL (Negative) 08/14/20 00:35 Urine Blood Negative (Negative) 08/14/20 00:35 Urine Nitrite Negative (Negative) 08/14/20 00:35 Ur Leukocyte Esterase Negative Alfredito/uL (Negative) 08/14/20 00:35 Urine RBC 0-3 HPF (0-3) 08/14/20 00:35 Urine WBC 0-3 HPF (0-3) 08/14/20 00:35 Ur Squamous Epith Cells None Seen HPF (0-3) 08/14/20 00:35 Urine Bacteria None Seen HPF (None Seen) 08/14/20 00:35 - EKG Interpretation EKG: Normal sinus rhythm - Radiology Interpretation MRI - head Additional Comment: No acute intracranial pathology PN A/P (1) Weakness on left side of face Code(s): R29.810 - FACIAL WEAKNESS Status: Acute (2) Hyponatremia Code(s): E87.1 - HYPO-OSMOLALITY AND HYPONATREMIA Status: Acute (3) Leucopenia Code(s): D72.819 - DECREASED WHITE BLOOD CELL COUNT, UNSPECIFIED Status: Acute (4) Crohn's disease Code(s): K50.90 - CROHN'S DISEASE, UNSPECIFIED, WITHOUT COMPLICATIONS Status: Chronic (5) GERD (gastroesophageal reflux disease) Code(s): K21.9 - GASTRO-ESOPHAGEAL REFLUX DISEASE WITHOUT ESOPHAGITIS Status: Chronic (6) Protein C deficiency Code(s): D68.59 - OTHER PRIMARY THROMBOPHILIA Status: Chronic (7) Seizure disorder Code(s): G40.909 - EPILEPSY, UNSP, NOT INTRACTABLE, WITHOUT STATUS EPILEPTICUS Status: Chronic - Plan Daily Plan: plan discussed w/ family, PT/OT Mr. Jacob is a 39-year-old male who presented with left-sided facial weakness with the left upper extremity paresthesias and weakness which improved since adm ission. Patient does have history of conversion disorder and has baseline right hemiparesis with no evidence of encephalomalacia on head CT or MRI of the brain. He also has history of protein C and protein S deficiency and also seizure disorder. Head CT reviewed which was negative for acute intracranial pathology or evidence of prior major vessels and stroke MRI of the brain reviewed which was negative for acute intracranial pathology. CTA of the head and neck was unremarkable Neurochecks every 4 hours. Continue aspirin and statin for secondary stroke prevention. Continue Kepprahome dose for seizure prophylaxis EEG reviewed which was negative for seizure activity. PT/OT/speech. Continue medical management per primary team. Follow-up with primary provider as outpatient. Plan discussed with the patient, mother and the nursing staff including the results of the testing.
--- NOTE | 2020-08-17 08:49 | DIS ---
DATE OF ADMISSION: 08/15/2020 DATE OF DISCHARGE: 08/15/2020 DISCHARGE DIAGNOSES: 1. Acute metabolic encephalopathy, resolved. 2. Urinary tract infection. 3. Left-sided face and neck numbness and weakness. 4. Seizure disorder. 5. Leukopenia. 6. Asthma. HOSPITAL COURSE: The patient is a 39-year-old male, who initially presented to the hospital with left-sided face and neck numbness and weakness. He was air lifted to [facility]. He did have initially a CTA and a CT of head. CT head was normal. CTA again did not show any acute abnormalities. The patient at this time was seen by Neurology, underwent an MRI of brain, which indicated no evidence of acute intracranial processes. 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 The patient then underwent an EEG, which was negative for any seizure evaluation. At this time, Neurology thought the patient was okay, stable for discharge. The patient's mother self-caths the patient. Urine culture indicated Staph epidermidis. We will start the patient on some Levaquin. He was completely asymptomatic for about 5 days. HOME MEDICATIONS: Will be, 1. Aspirin 81 mg daily. 2. Levaquin 500 mg daily. 3. Keflex has been discontinued. 4. Benzonatate 100 mg as needed. 5. Keppra 1500 mg b.i.d. 6. Trileptal 300 mg b.i.d. 7. Gabapentin 600 mg t.i.d. 8. Zonisamide 300 mg b.i.d. 9. Amitriptyline 100 mg daily. 10. Toviaz 4 mg daily. 11. Sulfasalazine 1000 mg b.i.d. 12. Protonix 40 mg twice a day. PHYSICAL EXAMINATION: VITAL SIGNS: On discharge; temperature of 97.6, 77, 16, 99% on room air, 102/67. GENERAL: He is awake, alert, and oriented x3. Does not appear in distress. CV: S1, S2 present. No murmurs, rubs, or gallops. ABDOMEN: Soft, nontender. Bowel sounds present x2. NEUROVASCULAR: He does have deficits to his right upper extremity. The patient has been asked to follow up with ENT and mother has been notified about the patient's findings on the MRI about the auditory canal lesion. She will follow up with the primary for further evaluation. She also wanted the patient to have a speech eval, which I have provided our speech therapist here, recommended a certain strict diet, which the patient has been instructed to do so. Job ID: [id number]
[2020-08-18 13:04] LABS: Factor VIII Test 139.8 % ACTIVE (56-157)
[2020-08-19 09:12] LABS: Protein C Activity 57 % (78-152)
--- NOTE | 2020-08-19 09:41 | PDOC.EVN ---
Event Note - Event Note Event Note: pt's mother minh martin called and left message about his low Protein C level. she was given the number for Dr Ellis Diaz.
[2020-08-20 14:34] LABS: Cardiolipin IgA Ab 3.6 APL-U/mL (<14 Negative); Cardiolipin IgG Ab Less than 0.5 GPL-U/mL (<10 Negative); EliA APS New Method **** NEW METHOD ****
--- NOTE | 2020-08-22 15:25 | EKG ---
Test Reason : STROKE ALERT Blood Pressure : / mmHG Vent. Rate : 099 BPM Atrial Rate : 099 BPM P-R Int : 178 ms QRS Dur : 102 ms QT Int : 346 ms P-R-T Axes : 081 089 082 degrees QTc Int : 444 ms Normal sinus rhythm Normal ECG Confirmed by LEE LIVINGSTON, AGUSTO Oh ([id number]), editor farm journal LEWIS LUNA ([id number]) on 08/22/2020 3:24:46 PM Referred By: Confirmed By:AGUSTO HOWARD MD
[2020-08-31 17:37] LABS: Activated Protein C Resistance 2.6 ratio (.)
== END 2020-08-15 14:35 | disposition home or self-care (01) | DRG 91 ==
LOC: ERS 20:52 → 2SE 22:10 → OBSVTOIN 08-15 11:50
PROVIDERS: ADMIT Internal Medicine; ATTEND Internal Medicine
DX: R29.810 Facial weakness (principal); G93.41 Metabolic encephalopathy; N39.0 Urinary tract infection, site not specified; D68.59 Other primary thrombophilia; K50.90 Crohn's disease, unspecified, without complications; E87.1 Hypo-osmolality and hyponatremia; I69.351 Hemiplegia and hemiparesis following cerebral infarction affecting right dominant side; R53.1 Weakness; K21.9 Gastro-esophageal reflux disease without esophagitis; D72.819 Decreased white blood cell count, unspecified; J45.909 Unspecified asthma, uncomplicated; G62.9 Polyneuropathy, unspecified; G40.909 Epilepsy, unspecified, not intractable, without status epilepticus; E87.6 Hypokalemia; Z87.891 Personal history of nicotine dependence; Z88.8 Allergy status to other drugs, medicaments and biological substances; Z88.1 Allergy status to other antibiotic agents; Z88.6 Allergy status to analgesic agent; Z79.899 Other long term (current) drug therapy
CPT/HCPCS: 36415; 36416; 51701; 70450; 70496; 70498; 70551; 71045; 80053; 80061; 80306; 81001; 81003; 81015; 81240; 81241; 82550; 83090; 83605; 84145; 84484; 85007; 85025; 85027; 85240; 85300; 85303; 85305; 85307; 85379; 85598; 85610; 85730; 86140; 86147; 87077; 87086; 87186; 87635; 93005; 95712; 95819; 95957; 96372; G0378; J1650; J1953; Q9967; U0003